=== PATIENT | female | born 1970 | race Caucasian/White ===

== ENCOUNTER → 2020-02-23 15:42 | Outpatient (BNVA) | payer MEDICAID, SELFPAY | PROVIDERS: PCP Nurse Practitioner Family; Referring Provider Nurse Practitioner Family; Visit Provider Dietitian, Registered | DX: Z76.89 Persons encountering health services in other specified circumstances (principal) ==

== ENCOUNTER → 2020-03-05 09:22 | Outpatient (BNVA) | payer MEDICAID, SELFPAY | PROVIDERS: PCP Nurse Practitioner Family; Visit Provider Surgery | DX: E66.9 Obesity, unspecified (principal); Z68.35 Body mass index [BMI] 35.0-35.9, adult; K91.2 Postsurgical malabsorption, not elsewhere classified; A04.8 Other specified bacterial intestinal infections; Z98.84 Bariatric surgery status | CPT/HCPCS: 99212 ==

== ENCOUNTER 2020-03-28 10:36 | Outpatient (REF) | payer MEDICAID, SELFPAY ==
[2020-03-28 12:12] LABS: Alanine Aminotransferase 11 U/L (0-31); Albumin Level 4.2 g/dL (3.5-5.0); Alkaline Phosphatase 74 U/L (39-117); Anion Gap 11 (12-20); Aspartate Amino Transferase 22 U/L (5-31); Bilirubin Total 0.3 mg/dL (0.0-1.0); Blood Urea Nitrogen 8 mg/dL (9-16); C Reactive Protein 0.78 mg/dL (< or = 0.50); Calcium 9.3 mg/dL (8.4-10.2); Carbon Dioxide 32 mmol/L (22-29); Chloride 103 mmol/L (96-108); Cholesterol 200 mg/dL; Estimated Glomerular Filt Rate > 60; Glucose Fasting 79 mg/dL (60-99); HDL Cholesterol 76 mg/dL; Iron 97 mcg/dL (30-160); LDL Cholesterol Calculated 99 mg/dl; Percent Iron Saturation 32 % (15-50); Potassium 4.7 mmol/l (3.3-5.1); Sodium 141 mmol/L (135-145); Total Iron Binding Capacity 303 mcg/dL (228-428); Total Protein 7.8 g/dL (6.5-8.0); Triglycerides 126 mg/dL; Unsaturated Iron Binding 206 ug/dL
[2020-03-28 12:34] LABS: Thyroid Stimulating Hormone 0.62 uIU/mL (0.32-4.0); Vitamin D 25-OH Total 25.9 ng/mL (>30)
[2020-03-28 12:37] LABS: Vitamin B12 331 pg/mL (200-900)
[2020-03-31 12:51] LABS: Zinc 72 mcg/dL (60-130)
[2020-04-04 10:57] LABS: Vitamin B1 6 nmol/L (8-30)
[2020-04-04 13:23] LABS: Vitamin A 37 mcg/dL (38-98)
== END 2020-03-28 10:37 | disposition home or self-care (01) ==
LOC: HO.LAB 10:36
PROVIDERS: PCP Nurse Practitioner Family; Visit Provider Surgery
DX: Z01.818 Encounter for other preprocedural examination (principal); K91.2 Postsurgical malabsorption, not elsewhere classified; Z90.3 Acquired absence of stomach [part of]
CPT/HCPCS: 80053; 80061; 82306; 82607; 83540; 84425; 84443; 84590; 84630; 86140

== ENCOUNTER 2020-07-17 10:06 | Outpatient (REF) | payer MEDICAID, SELFPAY ==
[2020-07-17 12:23] LABS: MANUAL DIFF FLAG NO
[2020-07-17 12:32] LABS: Basophils Percent Auto 0.7 % (0-2); Eosinophils Absolute Auto 0.1 X10*3/uL (0.0-0.4); Eosinophils Percent Auto 3.5 % (0-4); Hematocrit 43.2 % (37-47); Hemoglobin 13.8 g/dl (12.0-16.0); Imm Gran Abs Auto 0.01 X10*3/uL (0.00-0.03); Imm Gran Pct Auto 0.3 % (0.0-0.4); Lymphocytes Absolute Auto 1.5 X10*3/uL (1.2-4.9); Lymphocytes Percent Auto 51.7 % (20-40); Mean Corpuscular HGB Conc 31.9 g/dl (31.0-35.0); Mean Corpuscular Hemoglobin 27.7 pg (27.0-33.0); Mean Corpuscular Volume 86.7 fL (80-98); Monocytes Absolute Auto 0.2 X10*3/uL (0.1-1.2); Neutrophils Percent Auto 35.8 % (45-73); Platelet Count 273 X10*3/uL (160-400); Red Blood Count 4.98 X10*6/uL (4.20-5.50); Red Cell Distribution Width 13.8 % (11.0-16.0); White Blood Count 2.9 X10*3/uL (4.8-10.8)
[2020-07-17 12:59] LABS: Estimated Average Glucose 100 mg/dL; Hemoglobin A1c % 5.1 %
[2020-07-17 13:00] LABS: Alanine Aminotransferase 8 U/L (0-31); Albumin Level 4.3 g/dL (3.5-5.0); Alkaline Phosphatase 73 U/L (39-117); Anion Gap 9 (12-20); Aspartate Amino Transferase 15 U/L (5-31); Bilirubin Total 0.6 mg/dL (0.0-1.0); Blood Urea Nitrogen 12 mg/dL (9-16); C Reactive Protein 0.82 mg/dL (< or = 0.50); Calcium 9.1 mg/dL (8.4-10.2); Carbon Dioxide 33 mmol/L (22-29); Chloride 103 mmol/L (96-108); Cholesterol 199 mg/dL; Estimated Glomerular Filt Rate > 60; Glucose Fasting 75 mg/dL (60-99); HDL Cholesterol 87 mg/dL; Iron 97 mcg/dL (30-160); LDL Cholesterol Calculated 98 mg/dl; Percent Iron Saturation 30 % (15-50); Potassium 4.3 mmol/L (3.3-5.1); Sodium 141 mmol/L (135-145); Total Iron Binding Capacity 321 mcg/dL (228-428); Total Protein 7.4 g/dL (6.5-8.0); Triglycerides 73 mg/dL; Unsaturated Iron Binding 224 ug/dL
[2020-07-17 13:19] LABS: Thyroid Stimulating Hormone 1.08 uIU/mL (0.32-4.0); Vitamin D 25-OH Total 25.1 ng/mL (>30)
[2020-07-17 13:20] LABS: Vitamin B12 314 pg/mL (200-900)
[2020-07-20 06:47] LABS: Zinc 87 mcg/dL (60-130)
[2020-07-21 06:42] LABS: Vitamin B1 6 nmol/L (8-30)
[2020-07-21 17:46] LABS: Vitamin A 35 mcg/dL (38-98)
== END 2020-07-17 10:07 | disposition home or self-care (01) ==
LOC: HO.LAB 10:06
PROVIDERS: Visit Provider Surgery
DX: Z01.818 Encounter for other preprocedural examination (principal); K91.2 Postsurgical malabsorption, not elsewhere classified; E66.9 Obesity, unspecified; Z98.84 Bariatric surgery status; Z68.35 Body mass index [BMI] 35.0-35.9, adult; Z90.3 Acquired absence of stomach [part of]
CPT/HCPCS: 36415; 80053; 80061; 82306; 82607; 83036; 83540; 84425; 84443; 84590; 84630; 85025; 86140; 99212

== ENCOUNTER → 2020-09-11 10:16 | Outpatient (BNVA) | payer MEDICAID, SELFPAY | PROVIDERS: Visit Provider Surgery | DX: E66.9 Obesity, unspecified (principal); Z68.32 Body mass index [BMI] 32.0-32.9, adult | CPT/HCPCS: 99212 ==

== ENCOUNTER 2020-09-19 09:11 | Outpatient (REF) | payer MEDICAID, SELFPAY ==
--- NOTE | ~2020-09-19 | MM_ITS ---
EXAMINATION: MM DIAGNOSTIC DIGITAL BREAST TOMOSYNTHESIS, BILATERAL CLINICAL INFORMATION: Due for yearly. Also follow-up probable benign calcifications mid outer and mid upper outer right breast. Prior history reduction mammoplasty 2007. History benign left stereotactic biopsy 06/28/2018 (Benign breast tissue showing columnar cell changes, ductal hyperplasia and adenosis with associated microcalcifications; focal area showing fibroadenomatous changes. The lifetime risk of breast cancer based on the Tyrer-Cuzick Model is 7%. COMPARISON: Mammography: 01/25/2020, 12/21/2019 (BI-RADS 0), 06/28/2018, 06/10/2018, 09/19/2016. TECHNIQUE: Digital breast tomosynthesis is performed in both the craniocaudal and mediolateral oblique views along with computer-aided detection (CAD). Synthesized 2D images are generated from the tomosynthesis. Additional views are obtained: Left CC, magnification right CC, magnification right ML x2. FINDINGS: There are scattered areas of fibroglandular density (ACR BI-RADS breast composition Category b). There is mild stable scarring consistent with the prior reduction mammoplasty. Neither breast shows interval mass or architectural abnormality or developing density. There are some scattered benign calcifications again seen left breast and a biopsy clip marker again noted left mid upper outer quadrant. Right breast has benign-appearing grouped calcifications for follow-up mid 9:30 o'clock position and mid upper outer quadrant. Both groups appear coarser. There are new grouped calcifications in the anterior upper outer right breast, a few coarse and a few fine. There is likely some layering on a few of the fine calcifications suggested ML view. This may be same benign process of the calcifications being followed mid upper outer breast. Right breast will be reassessed again in 6 months to include magnification views. Results are discussed with the patient at time of visit. MM/MM tomosynthesis diagnostic BI IMPRESSION: 1. Right: Two groups calcifications for follow up upper outer quadrant are benign appearing. There are new calcifications in the periareolar right breast. Will follow the 3 areas in 6 months. 2. Left: No mammographic evidence of malignancy. ASSESSMENT: BI-RADS 3: Probably Benign RECOMMENDATION: Diagnostic right mammography in 6 months. This patient's information was entered into a reminder system with a target due date for their next mammogram.
== END 2020-09-19 09:12 | disposition home or self-care (01) ==
LOC: HO.MAMMO 09:11
PROVIDERS: Visit Provider Nurse Practitioner Family
DX: R92.1 Mammographic calcification found on diagnostic imaging of breast (principal)
CPT/HCPCS: 77062; 77066

== ENCOUNTER 2020-11-08 12:35 | Outpatient (REF) | payer MEDICAID, SELFPAY ==
[2020-11-08 13:36] LABS: Albumin Level 4.2 g/dL (3.5-5.0)
[2020-11-12 06:21] LABS: Vitamin B1 8 nmol/L (8-30)
[2020-11-12 19:41] LABS: Vitamin A 39 mcg/dL (38-98)
== END 2020-11-08 12:36 | disposition home or self-care (01) ==
LOC: HO.LAB 12:35
PROVIDERS: PCP Nurse Practitioner Family; Visit Provider Surgery
DX: Z01.818 Encounter for other preprocedural examination (principal); E66.9 Obesity, unspecified; Z68.35 Body mass index [BMI] 35.0-35.9, adult; E50.9 Vitamin A deficiency, unspecified; E51.9 Thiamine deficiency, unspecified; K91.2 Postsurgical malabsorption, not elsewhere classified; Z90.3 Acquired absence of stomach [part of]
CPT/HCPCS: 36415; 82040; 84425; 84590; 99212

== ENCOUNTER → 2021-02-05 10:41 | Outpatient (BNVA) | payer MEDICAID, SELFPAY | PROVIDERS: PCP Nurse Practitioner Family; Referring Provider Nurse Practitioner Family; Visit Provider Surgery | DX: E66.9 Obesity, unspecified (principal); Z68.35 Body mass index [BMI] 35.0-35.9, adult | CPT/HCPCS: 99212 ==

== ENCOUNTER → 2021-03-05 15:52 | Outpatient (BNVA) | payer MEDICAID, SELFPAY | PROVIDERS: PCP Nurse Practitioner Family; Referring Provider Nurse Practitioner Family; Visit Provider Physician Assistant Surgical ==

== ENCOUNTER 2021-03-22 01:42 | Emergency (ER) | payer MEDICAID, SELFPAY ==
[2021-03-22] MEDS: diphenhydrAMINE HCL 25 MG TABLET 50 MG PO (02:17)
[2021-03-22] MEDS: LORazepam 1 MG TABLET 2 MG PO (02:18)
[2021-03-22] MEDS: HaloperidoL 5 MG TABLET PO (02:18)
[2021-03-22 02:19] VITALS: RESP 22; TEMP 37.1; BMI 33.0
[2021-03-22 02:53] LABS: COVID-19 Test Negative (Negative)
--- NOTE | 2021-03-22 03:25 | ED.PSYCH ---
HPI - Psych General Chief Complaint: Psychiatric Symptoms Stated Complaint: psych/crisis Time Seen by Provider: 03/22/21 01:51 Source: EMS Mode of arrival: EMS Limitations: no limitations History of Present Illness HPI Narrative: Patient found out that her son of an overdose. She was found running around the street screaming not making sense. When EMS came in patient was screaming and trying to throw herself off of the stretcher. complaint: anxiety Onset (ago): hour(s) Duration: constant Context: other (found out that her son of overdose) Related Data Home Medications Medication Instructions Recorded Confirmed No Known Home Meds 03/05/21 03/05/21 Allergies Allergy/AdvReac Type Severity Reaction Status Date / Time Iodinated Contrast Media AdvReac Intermediate VOMITING Verified 03/05/21 16:05 [IV CONTRAST] Review of Systems Constitutional: Constitutional: Reports no additional constitutional complaints Eyes: Eyes: Reports no additional eye complaints ENT: Denies dizziness Cardiovascular: Cardiovascular: Reports no additional cardiovascular complaints Respiratory: Respiratory: Reports as per HPI Gastrointestinal: Gastrointestinal: Reports no additional gastrointestinal complaints Genitourinary: Genitourinary: Reports no additional female genitourinary complaints Musculoskeletal: Musculoskeletal: Reports no additional musculoskeletal complaints Integumentary/Breasts: Skin/Breast: Denies rash Neurologic: Reports system reviewed and no additional complaints, except as documented, Denies dizziness and Denies Sensory deficit (Neuro) Psychiatric: Psychiatric: Denies anxiety PMFSH Past Medical History Medical History Asthma Insomnia Obesity (BMI 30-39.9) Sleep apnea with use of continuous positive airway pressure (CPAP) Urinary incontinence Surgical History H/O oophorectomy Hx laparoscopic cholecystectomy Hx of colonoscopy Hx of tubal ligation S/P hernia repair S/P laparoscopic sleeve gastrectomy S/P BARBRA (total abdominal hysterectomy) Status post breast reduction Family History Family History Father DM (diabetes mellitus) HTN (hypertension) Mother Dementia Uterine cancer Brother No problems noted. Brother No problems noted. Brother No problems noted. Sister No problems noted. Sister No problems noted. Sister No problems noted. Sister No problems noted. Sister No problems noted. Sister No problems noted. Son No problems noted. Son No problems noted. Son No problems noted. Daughter No problems noted. Social History Social History Alcohol intake: current Patient Tobacco Use Status: Never used Tobacco Advance Directives: No Patient : No Physical Exam Vital Signs: Vital Signs: Last Vital Signs Temp 98.7 F 03/22/21 02:19 Resp 22 H 03/22/21 02:19 Body Mass Index 33.0 Const: Other: patient lethargic from being medicated Nutritional Appearance: obese Orientation/consciousness: oriented to person and patient oriented x3 Limitations: no limitations HENMT: Head: Yes normal to inspection Ears: external ears normal General nose exam: Normal external nose present Mouth: Normal oral and palatal mucosa present and oropharynx normal Throat: Yes posterior oropharynx normal Eyes: General: appearance normal, both eyes and all related structures Neck: Other: supple Neck: Yes normal visual inspection Chest: Chest palpation & inspection: normal inspection of the chest Resp: Auscultation: clear to auscultation bilaterally Cardio: Jugular venous distension: no JVD Rate: regular rate Rhythm: regular rhythm Heart sounds: S1 normal heart sound present and S2 normal heart sound present GI: Inspection: Yes normal to inspection Palpation (GI): Soft to palpation, nontender and No hepatosplenomegaly present Auscultation: normal bowel sounds : General: Yes no CVA tenderness Back/Spine/Pelvis: Back: no CVA tenderness Skin: General skin exam: no rashes or lesions noted Neuro: General: oriented to person and patient oriented x3 Cranial nerves: Yes CN's II-XII intact bilaterally Motor exam (neuro): 5/5 motor strength present throughout Sensory Exam: No Sensory deficit (Neuro) Extrem: General: Yes normal to inspection Psych: Other: lethargic Course Reevaluation(s) Reevaluation #1: patient now awake and calm, not suicidal or homicidal will dc home Time: 07:51 MDM - Psych Lab Data Labs: Lab Results 03/22/21 Range/Units 02:33 COVID-19 ([facility]) Negative (Negative) COVID-19 Clin Com See Note Discharge Plan Discharge Clinical Impression: Agitation, Anxiety, Grief at loss of child Patient Disposition: Home, Self-Care Instructions: Anxiety (ED), Grief and Loss (ED) Referrals: Physician,Unknown J [Primary Care Provider] - 1 week
--- NOTE | 2021-03-22 06:05 | PC.NURSE ---
Patient is currently sleeping, patient is emotionally dysregulated due tragic demised of his son yesterday, patient received Ativan 2 mg PO, Benadryl 50 mg PO, and Haldol mg PO, with delayed but positive effect. Patient wanted to leave the hospital since she lives by herself was advised to stay tonight at least which she agreed, patient was not changed over due inconsolable behavior, care team will check with patient to see for crises evaluation need, will continue to monitor.
--- NOTE | 2021-03-22 07:12 | PC.NURSE ---
patient appeared to remain sleeping at begin of shift respirations are even and unlabored, patient appears in no distress.
== END 2021-03-22 09:13 | disposition home or self-care (01) ==
PROVIDERS: Emergency Provider Emergency Medicine
DX: F41.9 Anxiety disorder, unspecified (principal); R45.1 Restlessness and agitation; Z72.89 Other problems related to lifestyle; Z63.4 Disappearance and death of family member; Z20.822 Contact with and (suspected) exposure to COVID-19
CPT/HCPCS: 36415; 87635; 96372; 99283; 99285; Q0163

== ENCOUNTER 2021-04-03 10:31 | Emergency (ER) | payer MEDICAID, SELFPAY ==
[2021-04-03 10:34] VITALS: BP 116/66; PULSE 78; RESP 18; TEMP 36.8; O2SAT 99; BMI 33.6
--- NOTE | 2021-04-03 10:37 | ECG_ITS ---
Test Reason : CHEST PAIN Blood Pressure : / mmHG Vent. Rate : 066 BPM Atrial Rate : 066 BPM P-R Int : 190 ms QRS Dur : 096 ms QT Int : 432 ms P-R-T Axes : 036 011 059 degrees QTc Int : 452 ms Normal sinus rhythm Normal ECG When compared with ECG of 12-JUL-2019 13:43, No significant change was found Referred By: Generic ED Physician Electronically Signed By:CARLINE DUBOIS
[2021-04-03 11:35] LABS: MANUAL DIFF FLAG NO
--- NOTE | 2021-04-03 11:36 | ED.CHESTPAIN ---
HPI - Chest Pain General Chief Complaint: Chest Pain Stated Complaint: chest pain Time Seen by Provider: 04/03/21 11:36 Source: patient Mode of arrival: ambulatory Limitations: no limitations History of Present Illness HPI narrative: Patient with diffuse numbness, now with neck and back pain with chest pain. Patients son on March 22 and she has been under a lot of stress. MD complaint: chest pain Onset (ago): day(s) Timing of current episode: constant Onset: during rest Pain location: substernal Quality: tightness Associated symptoms: other (numbness and anxiety) Related Data Previous Rx's Medication Instructions Recorded hydroxyzine HCl 25 mg tablet 25 mg PO TID PRN #7 tab 04/03/21 Allergies Allergy/AdvReac Type Severity Reaction Status Date / Time Iodinated Contrast Media AdvReac Intermediate VOMITING Verified 03/05/21 16:05 [IV CONTRAST] Review of Systems Constitutional: Constitutional: Reports no additional constitutional complaints Eyes: Eyes: Reports no additional eye complaints ENT: Denies dizziness Cardiovascular: Cardiovascular: Reports no additional cardiovascular complaints Respiratory: Respiratory: Reports as per HPI Gastrointestinal: Gastrointestinal: Reports no additional gastrointestinal complaints Genitourinary: Genitourinary: Reports no additional female genitourinary complaints Musculoskeletal: Musculoskeletal: Reports no additional musculoskeletal complaints Integumentary/Breasts: Skin/Breast: Denies rash Neurologic: Reports system reviewed and no additional complaints, except as documented, Denies dizziness and Denies Sensory deficit (Neuro) Psychiatric: Psychiatric: Denies anxiety PMFSH Past Medical History Medical History Asthma Insomnia Obesity (BMI 30-39.9) Sleep apnea with use of continuous positive airway pressure (CPAP) Urinary incontinence Surgical History H/O oophorectomy Hx laparoscopic cholecystectomy Hx of colonoscopy Hx of tubal ligation S/P hernia repair S/P laparoscopic sleeve gastrectomy S/P BARBRA (total abdominal hysterectomy) Status post breast reduction Family History Family History Father DM (diabetes mellitus) HTN (hypertension) Mother Dementia Uterine cancer Brother No problems noted. Brother No problems noted. Brother No problems noted. Sister No problems noted. Sister No problems noted. Sister No problems noted. Sister No problems noted. Sister No problems noted. Sister No problems noted. Son No problems noted. Son No problems noted. Son No problems noted. Daughter No problems noted. Social History Social History Alcohol intake: current Patient Tobacco Use Status: Never used Tobacco Advance Directives: No Advance Directives Information Provided: No Patient : No Physical Exam Vital Signs: Vital Signs: Last Vital Signs Temp 98.3 F 04/03/21 10:34 Pulse 78 04/03/21 10:34 Resp 18 04/03/21 10:34 BP 116/66 04/03/21 10:34 Pulse Ox 99 04/03/21 10:34 BMI result Body Mass Index 33.6 Const: General: healthy appearing Nutritional Appearance: average body habitus Orientation/consciousness: oriented to person and patient oriented x3 Limitations: no limitations HENMT: Head: Yes normal to inspection Ears: external ears normal General nose exam: Normal external nose present Mouth: Normal oral and palatal mucosa present and oropharynx normal Throat: Yes posterior oropharynx normal Eyes: General: appearance normal, both eyes and all related structures Neck: Other: supple Neck: Yes normal visual inspection Chest: Chest palpation & inspection: normal inspection of the chest Resp: Auscultation: clear to auscultation bilaterally Cardio: Jugular venous distension: no JVD Rate: regular rate Rhythm: regular rhythm Heart sounds: S1 normal heart sound present and S2 normal heart sound present GI: Inspection: Yes normal to inspection Palpation (GI): Soft to palpation, nontender and No hepatosplenomegaly present Auscultation: normal bowel sounds : General: Yes no CVA tenderness Back/Spine/Pelvis: Back: no CVA tenderness Skin: General skin exam: no rashes or lesions noted Neuro: General: oriented to person and patient oriented x3 Cranial nerves: Yes CN's II-XII intact bilaterally Motor exam (neuro): 5/5 motor strength present throughout Sensory Exam: No Sensory deficit (Neuro) Extrem: General: Yes normal to inspection Psych: Appearance: grossly normal Course Reevaluation(s) Reevaluation #1: patient with likely anxiety and somatic symptoms secondary to anxiety secondary to of her son will give hydroxyzine Time: 13:10 MDM - Chest Pain Lab Data Result diagrams: 04/03/21 11:26 12/01/21 11:26 Labs: Lab Results 04/03/21 04/03/21 04/03/21 Range/Units 11:26 11:26 11:26 WBC 4.0 L (4.8-10.8) X10*3/uL RBC 4.68 (4.20-5.50) X10*6/uL Hgb 12.9 (12.0-16.0) g/dl Hct 40.7 (37.0-47.0) % MCV 87.0 (80.0-98.0) fL MCH 27.6 (27.0-33.0) pg MCHC 31.7 (31.0-35.0) g/dl RDW 13.5 (11.0-16.0) % Plt Count 237 (160-400) X10*3/uL MPV 9.0 L (9.4-12.3) fL Immature Gran % (Auto) 0.2 (0.0-0.4) % Neut % (Auto) 54.1 (45-73) % Lymph % (Auto) 33.6 (20-40) % Wolfe % (Auto) 9.2 (2-11) % Eos % (Auto) 2.2 (0-4) % Baso % (Auto) 0.7 (0-2) % Lymph # (Auto) 1.4 (1.2-4.9) X10*3/uL Wolfe # (Auto) 0.4 (0.1-1.2) X10*3/uL Eos # (Auto) 0.1 (0.0-0.4) X10*3/uL Baso # (Auto) 0.0 (0.0-0.2) X10*3/uL Abs Immat Gran (auto) 0.01 (0.00-0.03) X10*3/uL Absolute Neuts (auto) 2.2 (2.0-8.3) x10*3/uL Absolute Nucleated RBC 0.000 (0.0-0.012) X10*3/uL Nucleated RBC % (auto) 0.0 (0.0-0.2) /100WBC Sodium 142 (135-145) mmol/L Potassium 4.0 (3.3-5.1) mmol/L Chloride 107 (96-108) mmol/L Carbon Dioxide 29 (22-29) mmol/L Anion Gap 10 L (12-20) BUN 8 L (9-16) mg/dL Creatinine 0.72 (0.5-1.4) mg/dL Estim Creat Clear Calc 98.3 Estimated GFR > 60 Random Glucose 79 (60-115) mg/dL Calcium 9.0 (8.4-10.2) mg/dL Troponin I High Sens < 3.5 (<3.5-17.0) ng/L ECG Data ECG #1: Attestation: I personally reviewed and interpreted this ECG as follows: Interpretation: normal sinus rate [address] or twave changes Discharge Plan Discharge Clinical Impression: Atypical chest pain, Anxiety Patient Disposition: Home, Self-Care Instructions: Noncardiac Chest Pain (ED), Anxiety (ED) Prescriptions: New hydroxyzine HCl 25 mg tablet 25 mg PO TID PRN (Reason: anxiety) Qty: 7 RF: 0 Referrals: [facility] [Primary Care Provider] - 1 week
[2021-04-03 11:38] LABS: Basophils Percent Auto 0.7 % (0-2); Eosinophils Absolute Auto 0.1 X10*3/uL (0.0-0.4); Eosinophils Percent Auto 2.2 % (0-4); Hematocrit 40.7 % (37.0-47.0); Hemoglobin 12.9 g/dl (12.0-16.0); Imm Gran Abs Auto 0.01 X10*3/uL (0.00-0.03); Imm Gran Pct Auto 0.2 % (0.0-0.4); Lymphocytes Absolute Auto 1.4 X10*3/uL (1.2-4.9); Lymphocytes Percent Auto 33.6 % (20-40); Mean Corpuscular HGB Conc 31.7 g/dl (31.0-35.0); Mean Corpuscular Hemoglobin 27.6 pg (27.0-33.0); Monocytes Absolute Auto 0.4 X10*3/uL (0.1-1.2); Monocytes Percent Auto 9.2 % (2-11); Neutrophils Absolute Auto 2.2 x10*3/uL (2.0-8.3); Neutrophils Percent Auto 54.1 % (45-73); Platelet Count 237 X10*3/uL (160-400); Red Blood Count 4.68 X10*6/uL (4.20-5.50); Red Cell Distribution Width 13.5 % (11.0-16.0)
[2021-04-03 11:49] LABS: Anion Gap 10 (12-20); Blood Urea Nitrogen 8 mg/dL (9-16); Carbon Dioxide 29 mmol/L (22-29); Chloride 107 mmol/L (96-108); Creatinine Clr Calc Pharmacy 98.3; Estimated Glomerular Filt Rate > 60; Glucose Random 79 mg/dL (60-115); Sodium 142 mmol/L (135-145)
[2021-04-03 11:56] LABS: Troponin-I High Sensitivity < 3.5 ng/L (<3.5-17.0)
--- NOTE | 2021-04-03 14:11 | PC.NURSE ---
nad, no cp, declined med
== END 2021-04-03 14:10 | disposition home or self-care (01) ==
PROVIDERS: Emergency Provider Emergency Medicine
DX: R07.89 Other chest pain (principal); F41.1 Generalized anxiety disorder; F43.0 Acute stress reaction; Z79.899 Other long term (current) drug therapy
CPT/HCPCS: 36415; 80048; 84484; 85025; 93005; 99283

== ENCOUNTER 2021-07-03 13:37 | Outpatient (REF) | payer MEDICAID, SELFPAY ==
--- NOTE | ~2021-07-03 | MM_ITS ---
EXAMINATION: MM DIAGNOSTIC DIGITAL BREAST TOMOSYNTHESIS, BILATERAL CLINICAL INFORMATION: Follow-up probable benign calcifications anterior and upper outer right breast. Prior history reduction mammoplasty, 2008. Benign left stereotactic biopsy 06/28/2018 (Benign breast tissue showing columnar cell changes, ductal hyperplasia and adenosis with associated microcalcifications; focal area showing fibroadenomatous changes. The lifetime risk of breast cancer based on the Tyrer-Cuzick Model is 7%. COMPARISON: Mammography: 09/19/2020 (BI-RADS 3-new calcifications periareolar), 01/25/2020, 12/21/2019 (BI-RADS 0), 06/22/2018, 06/10/2018 TECHNIQUE: Digital breast tomosynthesis is performed in both the craniocaudal and mediolateral oblique views along with computer-aided detection (CAD). Synthesized 2D images are generated from the tomosynthesis. Additional magnification right CC and magnification right ML views are obtained. FINDINGS: There are scattered areas of fibroglandular density (ACR BI-RADS breast composition Category b). Parenchymal pattern is similar to prior exams and there is no interval mass or architectural abnormality, or developing density. The axilla and skin contours are unremarkable. There are scattered bilateral incidental calcifications. Right breast calcifications for follow-up, 2 older groups mid 9:00 and mid upper outer quadrant are stable. The more recent grouped calcifications periareolar upper outer right breast are also stable from prior study. Calcifications will be reassessed again at next bilateral annual mammography in 12 months. Results are provided to the patient at time of visit by the technologist. MM/MM tomosynthesis diagnostic BI IMPRESSION: No significant changes from prior exams. Probable benign calcifications right breast, 3 groups, stable. ASSESSMENT: BI-RADS 3: Probably Benign RECOMMENDATION: Diagnostic mammography at time of next annual exam, due in 12 months. This patient's information was entered into a reminder system with a target due date for their next mammogram.
== END 2021-07-03 13:38 | disposition home or self-care (01) ==
LOC: HO.MAMMO 13:37
PROVIDERS: Visit Provider Nurse Practitioner Family
DX: R92.1 Mammographic calcification found on diagnostic imaging of breast (principal)
CPT/HCPCS: 77062; 77066

== ENCOUNTER 2022-07-05 15:42 | Inpatient (IN) | payer MEDICAID, SELFPAY ==
--- NOTE | ~2022-07-05 | CT_ITS ---
EXAMINATION: CT ABDOMEN AND PELVIS WITHOUT CONTRAST CLINICAL INFORMATION: Right lower quadrant pain, nausea and vomiting and fever. COMPARISON: CT abdomen/pelvis 01/05/2019. TECHNIQUE: Multidetector volumetric imaging was performed from the superior aspect of the liver through the pubic symphysis. Sagittal and coronal reformatted images were obtained on the technologist's workstation. This CT examination was performed using dose optimization techniques as appropriate, variously including the following: *Automated exposure control *Adjustment of mA and/or kV according to patient size (this includes techniques or standardized protocols for targeted exams where dose is matched to indication/reason for exam; i.e. extremities or head) *Use of iterative reconstruction technique DLP: 647 mGy-cm FINDINGS: LUNG BASES: No focal consolidation or pleural effusion. LIVER, GALLBLADDER, AND BILIARY TREE: The liver is normal in size, shape and attenuation without discrete focal abnormality in this limited noncontrast examination. Cholecystectomy with stable nonspecific intra and extrahepatic biliary duct dilatation compared to 2019. There are surgical clips in the cholecystectomy bed and adjacent to the posterior surface of the right hepatic lobe, likely dropped clips. PANCREAS: Limited noncontrast examination, within normal limits. SPLEEN: Unremarkable. ADRENAL GLANDS: No adrenal nodule. KIDNEYS AND URETERS: Limited noncontrast examination. No nephrolithiasis or hydronephrosis. No perinephric fat stranding. BLADDER: Underdistended limiting assessment of wall thickening. No perivesical fat stranding or intraluminal calculi. GASTROINTESTINAL TRACT: Postsurgical changes from sleeve gastrectomy. Multiple distended fluid filled loops of small bowel with also fluid in the colon and rectum, and associated mesenteric lymphadenopathy and mesenteric fat stranding. Nonspecific clumped loops of distended small bowel in the left upper abdomen (2:23). ABDOMINAL WALL: Again noted abdominal wall mesh with a couple of adjacent surgical clips anterior to the peritoneal cavity. Redemonstration of small fat-containing anterior abdominal wall hernias just superior to the mesh. LYMPH NODES: As above, there is mesenteric lymphadenopathy, increased compared to 2019, more noticeable in the left upper abdomen measuring up to 9 mm in AP diameter. VASCULAR: Limited noncontrast examination. The abdominal aorta is of normal diameter. PELVIC VISCERA: Hysterectomy. No pelvic mass. OSSEOUS STRUCTURES: Nonaggressive appearing sclerotic osseous foci in the pelvis, unchanged since 2019 likely bone islands. Degenerative endplate sclerosis at L4-L5. No acute or aggressive appearing osseous abnormalities. CT/CT abdomen pelvis wo IV con IMPRESSION: 1. Multiple distended fluid-filled loops of small bowel with also fluid in the colon/rectum, and associated mesenteric lymphadenopathy and mild mesenteric fat stranding, suggesting gastroenteritis and diarrhea. 2. Nonspecific clumped loops of mildly distended small bowel in the left upper abdomen that are likely reactive in the setting of gastroenteritis related with focal ileus, or much less likely related with a developing partial bowel obstruction within an internal hernia. Attention on follow-up recommended. 3. Redemonstration of small fat-containing anterior abdominal wall hernias just superior to the abdominal wall mesh. 4. Mesenteric lymphadenopathy, likely reactive. Attention on follow-up recommended.
--- NOTE | 2022-07-05 16:00 | ED_ITS ---
HPI - Nausea/Vomiting/Diarrhea General Chief complaint: Abdominal Pain <Taryn Deutsch CNP - Last Filed: 07/05/22 16:03> Stated complaint: diarrhea vomiting X3 days <Taryn Deutsch CNP - Last Filed: 07/05/22 16:03> Time Seen by Provider: 07/05/22 17:10 <Taryn Deutsch CNP - Last Filed: 07/05/22 16:03> Source: patient <Renee Trevizo NP - Last Filed: 07/05/22 21:53> Mode of arrival: ambulatory <Renee Trevizo NP - Last Filed: 07/05/22 21:53> Limitations: no limitations <Renee Trevizo NP - Last Filed: 07/05/22 21:53> History of Present Illness HPI Narrative: 51-year-old female presents with right-sided abdominal pain and 3 days of nausea vomiting diarrhea and fevers. <Renee Trevizo NP - Last Filed: 07/05/22 21:53> MD elicited complaint: nausea, vomiting, diarrhea, abdominal pain and other (Fever) <Renee Trevizo NP - Last Filed: 07/05/22 21:53> Pertinent past history: abdominal surgery <Renee Trevizo NP - Last Filed: 07/05/22 21:53> Onset (ago): day(s) (3) <Renee Trevizo NP - Last Filed: 07/05/22 21:53> Description of vomiting: watery <Renee Trevizo NP - Last Filed: 07/05/22 21:53> Description of diarrhea: watery <Renee Trevizo NP - Last Filed: 07/05/22 21:53> Associated nausea: Yes <Renee Trevizo NP - Last Filed: 07/05/22 21:53> Associated abdominal pain: Yes <Renee Trevizo NP - Last Filed: 07/05/22 21:53> Location of pain: diffuse <Renee Trevizo NP - Last Filed: 07/05/22 21:53> Pain consistency: constant <Renee Trevizo NP - Last Filed: 07/05/22 21:53> Severity: moderate <Renee Trevizo NP - Last Filed: 07/05/22 21:53> Quality: aching <Renee Trevizo NP - Last Filed: 07/05/22 21:53> Exacerbating factors: eating, vomiting and movement <Renee Trevizo NP - Last Filed: 07/05/22 21:53> Relieving factors: rest <Renee Trevizo NP - Last Filed: 07/05/22 21:53> Context: history of abdominal surgery <Renee Trevizo NP - Last Filed: 07/05/22 21:53> Associated symptoms: fever/chills and nausea/vomiting <Renee Trevizo NP - Last Filed: 08/24 21:53> Treatment prior to arrival: none <Renee Trevizo NP - Last Filed: 07/05/22 21:53> Related Data Home medications: Previous Rx's Medication Instructions Recorded hydroxyzine HCl 25 mg tablet 25 mg PO TID PRN anxiety #7 tabs 04/03/21 <Taryn Deutsch CNP - Last Filed: 07/05/22 16:03> Allergies/Adverse reactions: Allergies Allergy/AdvReac Type Severity Reaction Status Date / Time Iodinated Contrast Media AdvReac Intermediate VOMITING Verified 07/05/22 16:03 [IV CONTRAST] <Taryn Deutsch CNP - Last Filed: 07/05/22 16:03> Review of Systems Review of Systems: Constitutional: Phos Fever, No Chills Cardiovascular: No Chest Pain, No SOB Respiratory: No Cough, No Dyspnea Gastrointestinal: Positive Nausea, phos Vomiting, phos Diarrhea, positive abdominal Pain Genitourinary: No Dysuria, No Hematuria Musculoskeletal: No joint pain, No Myalgias, No Joint Swelling Skin: No Skin lacerations, No rash Neuro: No Weakness, No Dizziness, No Headache <Renee Trevizo NP - Last Filed: 07/05/22 21:53> Yes all other systems are reviewed and are negative <Renee Trevizo NP - Last Filed: 07/05/22 21:53> Gastrointestinal: Gastrointestinal: Reports nausea <Renee Trevizo NP - Last Filed: 07/05/22 21:53> PMFSH Past Medical History Attestation statement: The following information was validated with the patient. <Renee Trevizo NP - Last Filed: 07/05/22 21:53> Source: old records reviewed <Renee Trevizo NP - Last Filed: 07/05/22 21:53> Medical History: Medical History Asthma Insomnia Obesity (BMI 30-39.9) Sleep apnea with use of continuous positive airway pressure (CPAP) Urinary incontinence <Taryn Deutsch CNP - Last Filed: 07/05/22 16:03> Surgical History: Surgical History H/O oophorectomy Hx laparoscopic cholecystectomy Hx of colonoscopy Hx of tubal ligation S/P hernia repair S/P laparoscopic sleeve gastrectomy S/P BARBRA (total abdominal hysterectomy) Status post breast reduction <Taryn Deutsch CNP - Last Filed: 07/05/22 16:03> Family History Family History: Family History Father DM (diabetes mellitus) HTN (hypertension) Mother Dementia Uterine cancer Brother No problems noted. Brother No problems noted. Brother No problems noted. Sister No problems noted. Sister No problems noted. Sister No problems noted. Sister No problems noted. Sister No problems noted. Sister No problems noted. Son No problems noted. Son No problems noted. Son No problems noted. Daughter No problems noted. <Taryn Deutsch CNP - Last Filed: 07/05/22 16:03> Social History Social History: Social History Alcohol intake: current Patient Tobacco Use Status: Never used Tobacco Advance Directives: No Advance Directives Information Provided: No <Taryn Deutsch CNP - Last Filed: 07/05/22 16:03> Physical Exam Vital Signs: Vital Signs: Last Vital Signs Temp 98.5 F 07/05/22 16:01 Pulse 75 07/05/22 16:01 Resp 16 07/05/22 16:01 BP 112/81 07/05/22 16:01 Pulse Ox 99 07/05/22 16:01 O2 Del Method 03/04/23 16:01 BMI result Body Mass Index 36.5 <Taryn Deutsch CNP - Last Filed: 07/05/22 16:03> Vital Signs: Last Vital Signs Temp 98.5 F 07/05/22 16:01 Pulse 75 07/05/22 16:01 Resp 16 07/05/22 16:01 BP 112/81 07/05/22 16:01 Pulse Ox 99 07/05/22 16:01 O2 Del Method 07/05/22 16:01 BMI result Body Mass Index 36.5 <Renee Trevizo NP - Last Filed: 07/05/22 21:53> Appearance: Alert. Oriented X3. No acute distress. Eyes: Pupils equal, round and reactive to light. ENT: Pharynx normal. Neck: Normal inspection. Neck supple. CVS: Normal heart rate and rhythm. Pulses normal. Respiratory: No respiratory distress. Breath sounds normal. Abdomen: Soft and nontender. Skin: Skin warm and dry. Normal skin color. Normal skin turgor. Extremities: No lower extremity edema. Neuro: No motor deficit. No sensory deficit. <Renee Trevizo NP - Last Filed: 07/05/22 21:53> Course Course Course Narrative: This is an RME: Additional HPI, ROS, PE not included below will be deferred to primary provider. Patient is a 51 year old female who presents to the emergency department for evaluation of right lower abdominal pain. Reports that she went to Urgent Care today. For the past 3 days been experiencing feve r, abdominal pain, vomiting, diarrhea, and headache. She had COVID-19 testing and a urinalysis which were reportedly negative. Reports history of a partial hysterectomy. Plan: Labs, urinalysis, COVID/influenza testing, CT abdomen and pelvis <Taryn Deutsch CNP - Last Filed: 07/05/22 16:03> This is an RME: Additional HPI, ROS, PE not included below will be deferred to primary provider. Patient is a 51 year old female who presents to the emergency department for evaluation of right lower abdominal pain. Reports that she went to Urgent Care today. For the past 3 days been experiencing fever, abdominal pain, vomiting, diarrhea, and headache. She had COVID-19 testing and a urinalysis which were reportedly negative. Reports history of a partial hysterectomy. Plan: Labs, urinalysis, COVID/influenza testing, CT abdomen and pelvis 51-year-old female presents for 3 days of nausea, vomiting, diarrhea, and abdominal pain with fevers on Thursday. She has had poor p.o. intake since, and has been barely able to drink water. She has about 3 years status post gastric bypass done by Dr. Hawkins, has not had any follow-up for over [address] Hawkins departed from this facility. CT scan abdomen pelvis indicates possible partial small-bowel obstruction, I did discuss this finding with Dr. Olguin. Dr. Olguin requested that I reach out to bariatric surgery. Patient's lab values indicate a white count of 3.0, H&H of 16.2/49.8, consistent with dehydration. 2 L of saline IV ordered. Patient was advised to stay NPO due to the partial obstruction. I did discuss this case in detail with Anthony BURKS. this patient would like to establish care with this as she has not had any follow-up with Bariatric surgery for quite some time. Plan of care is to admit for partial bowel obstruction. <Renee Trevizo, ENERGY SALES BROKER - Last Filed: 07/05/22 21:53> Consultations Consultation #1: Clau <Renee Trevizo, ENERGY SALES BROKER - Last Filed: 07/05/22 21:53> Time: 18:04 <Renee Trevizo, ENERGY SALES BROKER - Last Filed: 07/05/22 21:53> Consultation #2: Kristina <Renee Trevizo ENERGY SALES BROKER - Last Filed: 07/05/22 21:53> Time: 18:20 <Renee Quinterosonato, ENERGY SALES BROKER - Last Filed: 07/05/22 21:53> Medications Administered Discontinued Medications Generic Name Dose Route Start Last Admin Trade Name Freq PRN Reason Stop Dose Admin Sodium Chloride 1,000 mls @ 999 mls/hr 07/05/22 17:15 07/05/22 21:06 Ns IVCONT 07/05/22 18:15 Infused .Q1H1M LAINE Infusion Sodium Chloride 1,000 mls @ 999 mls/hr 07/05/22 17:15 07/05/22 21:07 Ns IVCONT 07/05/22 18:15 Infused .Q1H1M LAINE Infusion Ondansetron HCl 4 mg 07/05/22 17:11 07/05/22 17:37 Ondansetron Hcl 4 Mg/2 Ml Vial IVPUSH 07/05/22 17:12 4 mg ONCE ONE Administration <Taryn Deutsch CNP - Last Filed: 07/05/22 16:03> Medications Administered Discontinued Medications Generic Name Dose Route Start Last Admin Trade Name Marisol PRN Reason Stop Dose Admin Sodium Chloride 1,000 mls @ 999 mls/hr 07/05/22 17:15 07/05/22 21:06 Ns IVCONT 07/05/22 18:15 Infused .Q1H1M LAINE Infusion Sodium Chloride 1,000 mls @ 999 mls/hr 07/05/22 17:15 07/05/22 21:07 Ns IVCONT 07/05/22 18:15 Infused .Q1H1M LAINE Infusion Ondansetron HCl 4 mg 07/05/22 17:11 07/05/22 17:37 Ondansetron Hcl 4 Mg/2 Ml Vial IVPUSH 07/05/22 17:12 4 mg ONCE ONE Administration <Renee Trevizo NP - Last Filed: 07/05/22 21:53> Medical Decision Making Differential Diagnosis Differential Diagnoses: The differential diagnosis associated with the presentation includes <Renee Trevizo NP - Last Filed: 07/05/22 21:53> Colitis, gastroenteritis, Shigella, influenza, SBO <Renee Trevizo NP - Last Filed: 07/05/22 21:53> Admission/Observation Consideration of admission/observation: Escalation of care including admission/observation considered <Renee Trevizo NP - Last Filed: 07/05/22 21:53> Patient requires admission for the findings of partial bowel obstruction status post gastric bypass 3 years ago <Renee Trevizo NP - Last Filed: 07/05/22 21:53> Consult Healthcare Provider Management of the patient was discussed with: Wildlife Control Agent <Renee Trevizo NP - Last Filed: 07/05/22 21:53> Anthony Acevedo <Renee Trevizo NP - Last Filed: 07/05/22 21:53> Lab Data MDM Lab Attestation statement: I reviewed the patient's lab results. <Renee Trevizo NP - Last Filed: 07/05/22 21:53> Result Diagrams: 07/05/22 16:21 07/05/22 16:21 <Taryn Deutsch CNP - Last Filed: 07/05/22 16:03> Labs: Lab Results 07/05/22 07/05/22 07/05/22 Range/Units 16:19 16:21 16:21 WBC 3.0 L (4.8-10.8) X10*3/uL RBC 5.92 H D (4.20-5.50) X10*6/uL Hgb 16.2 H D (12.0-16.0) g/dl Hct 49.8 H D (37.0-47.0) % MCV 84.1 (80.0-98.0) fL MCH 27.4 (27.0-33.0) pg MCHC 32.5 (31.0-35.0) g/dl RDW 13.6 (11.0-16.0) % Plt Count 256 (160-400) X10*3/uL MPV 8.9 L (9.4-12.3) fL Immature Gran % (Auto) 0.3 (0.0-0.4) % Neut % (Auto) 49.2 (45-73) % Lymph % (Auto) 33.9 (20-40) % Harlan % (Auto) 12.9 H (2-11) % Eos % (Auto) 3.4 (0-4) % Baso % (Auto) 0.3 (0-2) % Lymph # (Auto) 1.0 L (1.2-4.9) X10*3/uL Harlan # (Auto) 0.4 (0.1-1.2) X10*3/uL Eos # (Auto) 0.1 (0.0-0.4) X10*3/uL Baso # (Auto) 0.0 (0.0-0.2) X10*3/uL Abs Immat Gran (auto) 0.01 (0.00-0.03) X10*3/uL Absolute Neuts (auto) 1.5 L (2.0-8.3) x10*3/uL Absolute Nucleated RBC 0.000 (0.0-0.012) X10*3/uL Nucleated RBC % (auto) 0.0 (0.0-0.2) /100WBC ESR 16 (0-20) MM/HR Sodium (135-145) mmol/L Potassium (3.3-5.1) mmol/L Chloride (96-108) mmol/L Carbon Dioxide (22-29) mmol/L Anion Gap (12-20) BUN (9-16) mg/dL Creatinine (0.5-1.4) mg/dL Estim Creat Clear Calc Estimated GFR Random Glucose (60-115) mg/dL Lactic Acid (0.5-2.0) mmol/L Calcium (8.4-10.2) mg/dL Total Bilirubin (0.0-1.0) mg/dL AST (5-31) U/L ALT (0-31) U/L Alkaline Phosphatase (39-117) U/L C-Reactive Protein (< or = 0.50) mg/dL Total Protein (6.5-8.0) g/dL Albumin (3.5-5.0) g/dL Lipase (8-78) U/L Urine Color Dark Yellow Urine Appearance Cloudy Urine pH 5.5 (5.0-9.0) Ur Specific [place] >= 1.030 H (1.005-1.025) Urine Protein 30 (1+) H (Neg-Trace) mg/dL Urine Glucose (UA) Negative (Negative) mg/dL Urine Ketones Trace (Negative) mg/dL Urine Blood Negative (Negative) Urine Nitrite Negative (Negative) Ur Leukocyte Esterase Negative (Negative) Urine RBC 0-2 (0-2) /HPF Urine WBC 0-5 (0-5) /HPF Ur Squamous Epith Cells 11-20 (0-2) /HPF Urine Bacteria Trace (None Seen) Hyaline Casts 6-10 (0-2) /LPF COVID-19 ([facility]E) (Negative) COVID-19 Clin Com Influenza Type A (PAYAM) (Negative) Influenza Type B (PAAYM) (Negative) Influenza A & B Note 07/05/22 07/05/22 07/05/22 Range/Units 16:21 16:21 16:22 WBC (4.8-10.8) X10*3/uL RBC (4.20-5.50) X10*6/uL Hgb (12.0-16.0) g/dl Hct (37.0-47.0) % MCV (80.0-98.0) fL MCH (27.0-33.0) pg MCHC (31.0-35.0) g/dl RDW (11.0-16.0) % Plt Count (160-400) X10*3/uL MPV (9.4-12.3) fL Immature Gran % (Auto) (0.0-0.4) % Neut % (Auto) (45-73) % Lymph % (Auto) (20-40) % Harlan % (Auto) (2-11) % Eos % (Auto) (0-4) % Baso % (Auto) (0-2) % Lymph # (Auto) (1.2-4.9) X10*3/uL [place] # (Auto) (0.1-1.2) X10*3/uL Eos # (Auto) (0.0-0.4) X10*3/uL Baso # (Auto) (0.0-0.2) X10*3/uL Abs Immat Gran (auto) (0.00-0.03) X10*3/uL Absolute Neuts (auto) (2.0-8.3) x10*3/uL Absolute Nucleated RBC (0.0-0.012) X10*3/uL Nucleated RBC % (auto) (0.0-0.2) /100WBC ESR (0-20) MM/HR Sodium 139 (135-145) mmol/L Potassium 4.0 (3.3-5.1) mmol/L Chloride 108 (96-108) mmol/L Carbon Dioxide 21 L (22-29) mmol/L Anion Gap 14 (12-20) BUN 13 (9-16) mg/dL Creatinine 0.82 (0.5-1.4) mg/dL Estim Creat Clear Calc 89.2 Estimated GFR > 60 Random Glucose 83 (60-115) mg/dL Lactic Acid 0.8 (0.5-2.0) mmol/L Calcium 9.3 (8.4-10.2) mg/dL Total Bilirubin 0.3 (0.0-1.0) mg/dL AST 22 (5-31) U/L ALT 16 (0-31) U/L Alkaline Phosphatase 95 (39-117) U/L C-Reactive Protein 2.68 H (< or = 0.50) mg/dL Total Protein 8.3 H (6.5-8.0) g/dL Albumin 4.6 (3.5-5.0) g/dL Lipase 13 (8-78) U/L Urine Color Urine Appearance Urine pH (5.0-9.0) Ur Specific [place] (1.005-1.025) Urine Protein (Neg-Trace) mg/dL Urine Glucose (UA) (Negative) mg/dL Urine Ketones (Negative) mg/dL Urine Blood (Negative) Urine Nitrite (Negative) Ur Leukocyte Esterase (Negative) Urine RBC (0-2) /HPF Urine WBC (0-5) /HPF Ur Squamous Epith Cells (0-2) /HPF Urine Bacteria (None Seen) Hyaline Casts (0-2) /LPF COVID-19 ([facility]BIE) Negative (Negative) COVID-19 Clin Com See Note Influenza Type A (PAYAM) (Negative) Influenza Type B (PAYAM) (Negative) Influenza A & B Note 07/05/22 Range/Units 16:22 WBC (4.8-10.8) X10*3/uL RBC (4.20-5.50) X10*6/uL Hgb (12.0-16.0) g/dl Hct (37.0-47.0) % MCV (80.0-98.0) fL MCH (27.0-33.0) pg MCHC (31.0-35.0) g/dl RDW (11.0-16.0) % Plt Count (160-400) X10*3/uL MPV (9.4-12.3) fL Immature Gran % (Auto) (0.0-0.4) % Neut % (Auto) (45-73) % Lymph % (Auto) (20-40) % Harlan % (Auto) (2-11) % Eos % (Auto) (0-4) % Baso % (Auto) (0-2) % Lymph # (Auto) (1.2-4.9) X10*3/uL [place] # (Auto) (0.1-1.2) X10*3/uL Eos # (Auto) (0.0-0.4) X10*3/uL Baso # (Auto) (0.0-0.2) X10*3/uL Abs Immat Gran (auto) (0.00-0.03) X10*3/uL Absolute Neuts (auto) (2.0-8.3) x10*3/uL Absolute Nucleated RBC (0.0-0.012) X10*3/uL Nucleated RBC % (auto) (0.0-0.2) /100WBC ESR (0-20) MM/HR Sodium (135-145) mmol/L Potassium (3.3-5.1) mmol/L Chloride (96-108) mmol/L Carbon Dioxide (22-29) mmol/L Anion Gap (12-20) BUN (9-16) mg/dL Creatinine (0.5-1.4) mg/dL Estim Creat Clear Calc Estimated GFR Random Glucose (60-115) mg/dL Lactic Acid (0.5-2.0) mmol/L Calcium (8.4-10.2) mg/dL Total Bilirubin (0.0-1.0) mg/dL AST (5-31) U/L ALT (0-31) U/L Alkaline Phosphatase (39-117) U/L C-Reactive Protein (< or = 0.50) mg/dL Total Protein (6.5-8.0) g/dL Albumin (3.5-5.0) g/dL Lipase (8-78) U/L Urine Color Urine Appearance Urine pH (5.0-9.0) Ur Specific [place] (1.005-1.025) Urine Protein (Neg-Trace) mg/dL Urine Glucose (UA) (Negative) mg/dL Urine Ketones (Negative) mg/dL Urine Blood (Negative) Urine Nitrite (Negative) Ur Leukocyte Esterase (Negative) Urine RBC (0-2) /HPF Urine WBC (0-5) /HPF Ur Squamous Epith Cells (0-2) /HPF Urine Bacteria (None Seen) Hyaline Casts (0-2) /LPF COVID-19 ([facility]) (Negative) COVID-19 Clin Com Influenza Type A (PAYAM) Negative (Negative) Influenza Type B (PAYAM) Negative (Negative) Influenza A & B Note See Note <Taryn Mcgillkristian Deutsch, GRAPHIC ART TECHNICIAN - Last Filed: 07/05/22 16:03> Lab Results 07/05/22 07/05/22 07/05/22 Range/Units 16:19 16:21 16:21 WBC 3.0 L (4.8-10.8) X10*3/uL RBC 5.92 H D (4.20-5.50) X10*6/uL Hgb 16.2 H D (12.0-16.0) g/dl Hct 49.8 H D (37.0-47.0) % MCV 84.1 (80.0-98.0) fL MCH 27.4 (27.0-33.0) pg MCHC 32.5 (31.0-35.0) g/dl RDW 13.6 (11.0-16.0) % Plt Count 256 (160-400) X10*3/uL MPV 8.9 L (9.4-12.3) fL Immature Gran % (Auto) 0.3 (0.0-0.4) % Neut % (Auto) 49.2 (45-73) % Lymph % (Auto) 33.9 (20-40) % Harlan % (Auto) 12.9 H (2-11) % Eos % (Auto) 3.4 (0-4) % Baso % (Auto) 0.3 (0-2) % Lymph # (Auto) 1.0 L (1.2-4.9) X10*3/uL Harlan # (Auto) 0.4 (0.1-1.2) X10*3/uL Eos # (Auto) 0.1 (0.0-0.4) X10*3/uL Baso # (Auto) 0.0 (0.0-0.2) X10*3/uL Abs Immat Gran (auto) 0.01 (0.00-0.03) X10*3/uL Absolute Neuts (auto) 1.5 L (2.0-8.3) x10*3/uL Absolute Nucleated RBC 0.000 (0.0-0.012) X10*3/uL Nucleated RBC % (auto) 0.0 (0.0-0.2) /100WBC ESR 16 (0-20) MM/HR Sodium (135-145) mmol/L Potassium (3.3-5.1) mmol/L Chloride (96-108) mmol/L Carbon Dioxide (22-29) mmol/L Anion Gap (12-20) BUN (9-16) mg/dL Creatinine (0.5-1.4) mg/dL Estim Creat Clear Calc Estimated GFR Random Glucose (60-115) mg/dL Lactic Acid (0.5-2.0) mmol/L Calcium (8.4-10.2) mg/dL Total Bilirubin (0.0-1.0) mg/dL AST (5-31) U/L ALT (0-31) U/L Alkaline Phosphatase (39-117) U/L C-Reactive Protein (< or = 0.50) mg/dL Total Protein (6.5-8.0) g/dL Albumin (3.5-5.0) g/dL Lipase (8-78) U/L Urine Color Dark Yellow Urine Appearance Cloudy Urine pH 5.5 (5.0-9.0) Ur Specific [place] >= 1.030 H (1.005-1.025) Urine Protein 30 (1+) H (Neg-Trace) mg/dL Urine Glucose (UA) Negative (Negative) mg/dL Urine Ketones Trace (Negative) mg/dL Urine Blood Negative (Negative) Urine Nitrite Negative (Negative) Ur Leukocyte Esterase Negative (Negative) Urine RBC 0-2 (0-2) /HPF Urine WBC 0-5 (0-5) /HPF Ur Squamous Epith Cells 11-20 (0-2) /HPF Urine Bacteria Trace (None Seen) Hyaline Casts 6-10 (0-2) /LPF COVID-19 ([facility]) (Negative) COVID-19 Clin Com Influenza Type A (PAYAM) (Negative) Influenza Type B (PAYAM) (Negative) Influenza A & B Note 07/05/22 07/05/22 07/05/22 Range/Units 16:21 16:21 16:22 WBC (4.8-10.8) X10*3/uL RBC (4.20-5.50) X10*6/uL Hgb (12.0-16.0) g/dl Hct (37.0-47.0) % MCV (80.0-98.0) fL MCH (27.0-33.0) pg MCHC (31.0-35.0) g/dl RDW (11.0-16.0) % Plt Count (160-400) X10*3/uL MPV (9.4-12.3) fL Immature Gran % (Auto) (0.0-0.4) % Neut % (Auto) (45-73) % Lymph % (Auto) (20-40) % [place] % (Auto) (2-11) % Eos % (Auto) (0-4) % Baso % (Auto) (0-2) % Lymph # (Auto) (1.2-4.9) X10*3/uL [place] # (Auto) (0.1-1.2) X10*3/uL Eos # (Auto) (0.0-0.4) X10*3/uL Baso # (Auto) (0.0-0.2) X10*3/uL Abs Immat Gran (auto) (0.00-0.03) X10*3/uL Absolute Neuts (auto) (2.0-8.3) x10*3/uL Absolute Nucleated RBC (0.0-0.012) X10*3/uL Nucleated RBC % (auto) (0.0-0.2) /100WBC ESR (0-20) MM/HR Sodium 139 (135-145) mmol/L Potassium 4.0 (3.3-5.1) mmol/L Chloride 108 (96-108) mmol/L Carbon Dioxide 21 L (22-29) mmol/L Anion Gap 14 (12-20) BUN 13 (9-16) mg/dL Creatinine 0.82 (0.5-1.4) mg/dL Estim Creat Clear Calc 89.2 Estimated GFR > 60 Random Glucose 83 (60-115) mg/dL Lactic Acid 0.8 (0.5-2.0) mmol/L Calcium 9.3 (8.4-10.2) mg/dL Total Bilirubin 0.3 (0.0-1.0) mg/dL AST 22 (5-31) U/L ALT 16 (0-31) U/L Alkaline Phosphatase 95 (39-117) U/L C-Reactive Protein 2.68 H (< or = 0.50) mg/dL Total Protein 8.3 H (6.5-8.0) g/dL Albumin 4.6 (3.5-5.0) g/dL Lipase 13 (8-78) U/L Urine Color Urine Appearance Urine pH (5.0-9.0) Ur Specific [place] (1.005-1.025) Urine Protein (Neg-Trace) mg/dL Urine Glucose (UA) (Negative) mg/dL Urine Ketones (Negative) mg/dL Urine Blood (Negative) Urine Nitrite (Negative) Ur Leukocyte Esterase (Negative) Urine RBC (0-2) /HPF Urine WBC (0-5) /HPF Ur Squamous Epith Cells (0-2) /HPF Urine Bacteria (None Seen) Hyaline Casts (0-2) /LPF COVID-19 ([facility]) Negative (Negative) COVID-19 Clin Com See Note Influenza Type A (PAYAM) (Negative) Influenza Type B (PAYAM) (Negative) Influenza A & B Note 07/05/22 Range/Units 16:22 WBC (4.8-10.8) X10*3/uL RBC (4.20-5.50) X10*6/uL Hgb (12.0-16.0) g/dl Hct (37.0-47.0) % MCV (80.0-98.0) fL MCH (27.0-33.0) pg MCHC (31.0-35.0) g/dl RDW (11.0-16.0) % Plt Count (160-400) X10*3/uL MPV (9.4-12.3) fL Immature Gran % (Auto) (0.0-0.4) % Neut % (Auto) (45-73) % Lymph % (Auto) (20-40) % [place] % (Auto) (2-11) % Eos % (Auto) (0-4) % Baso % (Auto) (0-2) % Lymph # (Auto) (1.2-4.9) X10*3/uL [place] # (Auto) (0.1-1.2) X10*3/uL Eos # (Auto) (0.0-0.4) X10*3/uL Baso # (Auto) (0.0-0.2) X10*3/uL Abs Immat Gran (auto) (0.00-0.03) X10*3/uL Absolute Neuts (auto) (2.0-8.3) x10*3/uL Absolute Nucleated RBC (0.0-0.012) X10*3/uL Nucleated RBC % (auto) (0.0-0.2) /100WBC ESR (0-20) MM/HR Sodium (135-145) mmol/L Potassium (3.3-5.1) mmol/L Chloride (96-108) mmol/L Carbon Dioxide (22-29) mmol/L Anion Gap (12-20) BUN (9-16) mg/dL Creatinine (0.5-1.4) mg/dL Estim Creat Clear Calc Estimated GFR Random Glucose (60-115) mg/dL Lactic Acid (0.5-2.0) mmol/L Calcium (8.4-10.2) mg/dL Total Bilirubin (0.0-1.0) mg/dL AST (5-31) U/L ALT (0-31) U/L Alkaline Phosphatase (39-117) U/L C-Reactive Protein (< or = 0.50) mg/dL Total Protein (6.5-8.0) g/dL Albumin (3.5-5.0) g/dL Lipase (8-78) U/L Urine Color Urine Appearance Urine pH (5.0-9.0) Ur Specific [place] (1.005-1.025) Urine Protein (Neg-Trace) mg/dL Urine Glucose (UA) (Negative) mg/dL Urine Ketones (Negative) mg/dL Urine Blood (Negative) Urine Nitrite (Negative) Ur Leukocyte Esterase (Negative) Urine RBC (0-2) /HPF Urine WBC (0-5) /HPF Ur Squamous Epith Cells (0-2) /HPF Urine Bacteria (None Seen) Hyaline Casts (0-2) /LPF COVID-19 ([facility]) (Negative) COVID-19 Clin Com Influenza Type A (PAYAM) Negative (Negative) Influenza Type B (PAYAM) Negative (Negative) Influenza A & B Note See Note <Renee Trevizo NP - Last Filed: 07/05/22 21:53> Independent Interpretation I performed an independent interpretation of an: CT Scan <Renee Trevizo NP - Last Filed: 07/05/22 21:53> Interpretation: EXAMINATION: XR forearm LT 2V, XR hand wrist LT CLINICAL INFORMATION: Reason for Exam fracture COMPARISON: None. TECHNIQUE: 3 view series left forearm; 3 view series left wrist. FINDINGS: Left wrist: An oblique fracture of the fourth proximal phalanx is identified without definitive intra-articular extension. No associated erosive osseous lesion. A 4 mm well-corticated ossific body is present adjacent to the radial aspect of the fifth proximal interphalangeal joint and may represent a chronic posttraumatic, ununited fracture fragment. The distal radius appears intact. Left forearm: No fractures or acute appearing subluxations of the former visualized. A chronic appearing 2 mm rounded calcification is present in the antecubital region and may represent a phlebolith. XR/XR hand wrist LT IMPRESSION: Left wrist and left forearm: *Acute displaced oblique fracture of the fourth proximal phalanx. *4 mm well-corticated ossific body along the radial aspect of the fifth proximal interphalangeal joint which may represent the sequela of remote trauma. If clinical concern is present for acute on chronic injury in this region, recommend dedicated hand radiographs for further evaluation.? <Renee Trevizo NP - Last Filed: 07/05/22 21:53> Independent Historian Clinical information obtained from an independent historian. History obtained from or confirmed by: Spouse <Renee Trevizo NP - Last Filed: 07/05/22 21:53> External Record Review External record reviewed: Inpatient record, Outpatient record and Prior outpatient labs <Renee Nesbitt NP - Last Filed: 07/05/22 21:53> Prescription Management I considered prescription management with: Other (Fluids) <Renee Trevizo NP - Last Filed: 07/05/22 21:53> Chronic Conditions Patient?s care impacted by: Other (Gastric bypass) <Renee Trevizo NP - Last Filed: 07/05/22 21:53> Discharge Plan Discharge Clinical Impression: Partial bowel obstruction, Dehydration, Nausea, vomiting, and diarrhea, Fever <FER Vieira Last Filed: 07/05/22 16:03> Patient Disposition: Admitted As Inpatient <Taryn Deutsch CNP - Last Filed: 07/05/22 16:03> Prescriptions: No Action hydroxyzine HCl 25 mg tablet 25 mg PO TID PRN (Reason: anxiety) Qty: 7 0RF <Taryn Deutsch CNP - Last Filed: 07/05/22 16:03>
[2022-07-05 16:01] VITALS: BP 112/81; PULSE 75; RESP 16; TEMP 36.9; O2SAT 99; BMI 36.5
[2022-07-05 16:29] LABS: MANUAL DIFF FLAG NO
[2022-07-05 16:31] LABS: Basophils Percent Auto 0.3 % (0-2); Eosinophils Absolute Auto 0.1 X10*3/uL (0.0-0.4); Eosinophils Percent Auto 3.4 % (0-4); Hematocrit 49.8 % (37.0-47.0); Hemoglobin 16.2 g/dl (12.0-16.0); Imm Gran Abs Auto 0.01 X10*3/uL (0.00-0.03); Imm Gran Pct Auto 0.3 % (0.0-0.4); Lymphocytes Percent Auto 33.9 % (20-40); Mean Corpuscular HGB Conc 32.5 g/dl (31.0-35.0); Mean Corpuscular Hemoglobin 27.4 pg (27.0-33.0); Mean Corpuscular Volume 84.1 fL (80.0-98.0); Mean Platelet Volume 8.9 fL (9.4-12.3); Monocytes Absolute Auto 0.4 X10*3/uL (0.1-1.2); Monocytes Percent Auto 12.9 % (2-11); Neutrophils Absolute Auto 1.5 x10*3/uL (2.0-8.3); Neutrophils Percent Auto 49.2 % (45-73); Platelet Count 256 X10*3/uL (160-400); Red Blood Count 5.92 X10*6/uL (4.20-5.50); Red Cell Distribution Width 13.6 % (11.0-16.0)
[2022-07-05 16:32] LABS: Appearance Urine Cloudy; Color Urine Dark Yellow; Glucose Urine UA Negative (Negative); Leukocyte Esterase Urine Negative (Negative); Nitrite Urine Negative (Negative); PH 5.5 (5.0-9.0); Specific Gravity - Urine >= 1.030 (1.005-1.025); UMIC TRIGGER UACC YES; Urine Blood Negative (Negative); Urine Ketones Trace mg/dL (Negative); Urine Protein 30 (1+) mg/dL (Neg-Trace)
[2022-07-05 16:40] LABS: Lactic Acid 0.8 mmol/L (0.5-2.0)
[2022-07-05 16:45] LABS: Alanine Aminotransferase 16 U/L (0-31); Albumin Level 4.6 g/dL (3.5-5.0); Alkaline Phosphatase 95 U/L (39-117); Anion Gap 14 (12-20); Aspartate Amino Transferase 22 U/L (5-31); Bilirubin Total 0.3 mg/dL (0.0-1.0); Blood Urea Nitrogen 13 mg/dL (9-16); C Reactive Protein 2.68 mg/dL (< or = 0.50); Calcium 9.3 mg/dL (8.4-10.2); Carbon Dioxide 21 mmol/L (22-29); Chloride 108 mmol/L (96-108); Creatinine Clr Calc Pharmacy 89.2; Estimated Glomerular Filt Rate > 60; Glucose Random 83 mg/dL (60-115); Lipase 13 U/L (8-78); Sodium 139 mmol/L (135-145); Total Protein 8.3 g/dL (6.5-8.0)
[2022-07-05 16:47] LABS: IDNOW Serial# BCCEAD1C; Influenza A Negative (Negative); Influenza B2 Negative (Negative)
[2022-07-05 16:47] LABS: Bacteria Urine Trace (None Seen); RBC Urine 0-2 /HPF (0-2); WBC Urine 0-5 /HPF (0-5)
[2022-07-05 16:48] LABS: COVID-19 Test Negative (Negative); IDNOW Serial# 16C4AD1C
[2022-07-05 17:05] LABS: Erythrocyte Sedimentation Rate 16 MM/HR (0-20)
[2022-07-05] MEDS: 0.9 % Sodium Chloride 1,000 ML 999 ML IVCONT ×2 (17:37)
[2022-07-05] MEDS: ondansetron HCL 4 MG/2 ML VIAL IVPUSH (17:37)
--- NOTE | 2022-07-05 21:43 | PM.CNGS ---
History of Present Illness Consult details Consult date: 07/05/22 Reason for consult: abdominal pain Narrative: 51 yo female s/p LSG 07/20/[address] Box, not seen in the office since 03/05/21, presented to the ER with a 2 day hx of abdominal pain, nausea, and diarrhea. She was found to have a mild leukopenia and evidence of dehydration by way of hemoconcentration. She had a noncontrast CT of her abdomen and was also found to have distended loops of bowel consistent with a gastroenteritis and possible ileus as well as mesenteric lymphadenopathy. Again noted was fat containing anterior abdominal wall hernia and mesh from previous hernia repair. She was given Zofran and 2 L IVF in the ED but was still not feeling well enough to go home. She states she has not been followed in the outpt setting by Dr Box in the last year and would like to resume care with [facility] weight management program. Admission was requested by the ED. [facility] Past Medical History Medical History Asthma Insomnia Obesity (BMI 30-39.9) Sleep apnea with use of continuous positive airway pressure (CPAP) Urinary incontinence Family History Family History Father DM (diabetes mellitus) HTN (hypertension) Mother Dementia Uterine cancer Brother No problems noted. Brother No problems noted. Brother No problems noted. Sister No problems noted. Sister No problems noted. Sister No problems noted. Sister No problems noted. Sister No problems noted. Sister No problems noted. Son No problems noted. Son No problems noted. Son No problems noted. Daughter No problems noted. Surgical History Surgical History H/O oophorectomy Hx laparoscopic cholecystectomy Hx of colonoscopy Hx of tubal ligation S/P hernia repair S/P laparoscopic sleeve gastrectomy S/P BARBRA (total abdominal hysterectomy) Status post breast reduction Social History Social History Alcohol intake: current Alcohol intake frequency: a few times a month Patient Tobacco Use Status: Never used Tobacco Smoked in Last 30 Days: No Use of substances other than those prescribed or required for medical reasons: No Advance Directives: No Advance Directives Information Provided: No Nutrition Risks: No Nutritional Risk Patient : No Meds Allergies Allergy/AdvReac Type Severity Reaction Status Date / Time Iodinated Contrast Media AdvReac Intermediate VOMITING Verified 07/05/22 16:03 [IV CONTRAST] Home Medications Medication Instructions Recorded Confirmed Last Taken Type albuterol sulfate 90 mcg/actuation 2 puff inhalation QID PRN Wheezing 07/06/22 07/06/22 Unknown History aerosol inhaler (Ventolin HFA) cholecalciferol (vitamin D3) 50 1 cap DAILY 07/06/22 07/06/22 Unknown History mcg (2,000 unit) capsule ibuprofen 200 mg tablet 400 mg PO Q6H PRN pain or headache 07/06/22 07/06/22 Unknown History trazodone 50 mg tablet 1 tab BEDTIME 07/06/22 07/06/22 Unknown History Physical Exam Vital Signs: Vital Signs: Last Vital Signs Temp 98.5 F 07/05/22 16:01 Pulse 75 07/05/22 16:01 Resp 16 07/05/22 16:01 BP 112/81 07/05/22 16:01 Pulse Ox 99 07/05/22 16:01 O2 Del Method 07/05/22 16:01 BMI result Body Mass Index 36.5 Const: General: cooperative, healthy appearing and no acute distress Orientation/consciousness: patient oriented x3 HEENT: Head: Yes normal to inspection Ears: hearing grossly normal bilaterally General nose exam: Normal external nose present Face and sinus: Yes normal facial exam Eyes: General: appearance normal, both eyes and all related structures Resp: Effort & Inspection: normal respiratory effort Auscultation: clear to auscultation bilaterally Cardio: Rate: regular rate Rhythm: regular rhythm Heart sounds: S1 normal heart sound present and S2 normal heart sound present GI: Inspection: Yes normal to inspection, No distended, Yes incision (multiple well healed incisions of the abdomen) and Yes obesity Palpation (GI): Soft to palpation, nontender and no guarding Auscultation: Hypoactive bowel sounds present Skin: General skin exam: no rashes or lesions noted Neuro: General: patient oriented x3 Extrem: General: No edema Psych: Appearance: grossly normal Mental Status: mental status grossly normal Speech and movement: Normal speech and movement present Affect: normal affect Attitude: cooperative Results Labs 07/05/22 16:21 07/05/22 16:21 Labs: Abnormal lab results 07/05/22 07/05/22 07/05/22 Range/Units 16:19 16:21 16:21 WBC 3.0 L (4.8-10.8) X10*3/uL RBC 5.92 H D (4.20-5.50) X10*6/uL Hgb 16.2 H D (12.0-16.0) g/dl Hct 49.8 H D (37.0-47.0) % MPV 8.9 L (9.4-12.3) fL [place] % (Auto) 12.9 H (2-11) % Lymph # (Auto) 1.0 L (1.2-4.9) X10*3/uL Absolute Neuts (auto) 1.5 L (2.0-8.3) x10*3/uL Carbon Dioxide 21 L (22-29) mmol/L C-Reactive Protein 2.68 H (< or = 0.50) mg/dL Total Protein 8.3 H (6.5-8.0) g/dL Ur Specific [place] >= 1.030 H (1.005-1.025) Urine Protein 30 (1+) H (Neg-Trace) mg/dL Short CBC 07/05/22 Range/Units 16:21 WBC 3.0 L (4.8-10.8) X10*3/uL Hgb 16.2 H D (12.0-16.0) g/dl Hct 49.8 H D (37.0-47.0) % Plt Count 256 (160-400) X10*3/uL BMP 07/05/22 16:21 Sodium 139 Potassium 4.0 Chloride 108 Carbon Dioxide 21 L BUN 13 Creatinine 0.82 Calcium 9.3 Liver Function 07/05/22 Range/Units 16:21 Total Bilirubin 0.3 (0.0-1.0) mg/dL AST 22 (5-31) U/L ALT 16 (0-31) U/L Alkaline Phosphatase 95 (39-117) U/L Albumin 4.6 (3.5-5.0) g/dL Urine 07/05/22 Range/Units 16:19 Urine Color Dark Yellow Urine Appearance Cloudy Urine pH 5.5 (5.0-9.0) Ur Specific [place] >= 1.030 H (1.005-1.025) Urine Protein 30 (1+) H (Neg-Trace) mg/dL Urine Glucose (UA) Negative (Negative) mg/dL All other labs normal. Imaging Abdomen CT scan report/results: report reviewed and image reviewed Additional studies: IMPRESSION: 1.? Multiple distended fluid-filled loops of small bowel with also fluid in the colon/rectum, and associated mesenteric lymphadenopathy and mild mesenteric fat stranding, suggesting gastroenteritis and diarrhea. 2.? Nonspecific clumped loops of mildly distended small bowel in the left upper abdomen that are likely reactive in the setting of gastroenteritis related with focal ileus, or much less likely related with a developing partial bowel obstruction within an internal hernia. Attention on follow-up recommended. 3.? Redemonstration of small fat-containing anterior abdominal wall hernias just superior to the abdominal wall mesh. 4.? Mesenteric lymphadenopathy, likely reactive. Attention on follow-up recommended. Assessment and Plan (1) Gastroenteritis: Status: Acute Likely viral in origin given presentation, leukopenia and self limiting resolution. She is feeling much better this morning and wants to go home. Recc liquid diet today with 2 celebrate 4:1 shakes 2 scoops each with lactaid milk that she tolerates and one fairlife shake today. Starting tomorrow 2 celebrate 4:1 shakes with 2 scoops each and a yogurt daily. If she tolerates that well will adjust meal plan in f/u in the office this week. (2) Obesity (BMI 30-39.9): Status: Acute She states she would like to lose another 20-25 pounds and wants to f/u in the [facility]. Will arrange folllow up (3) Positive H. pylori test: Status: Acute Neg H Pylori on EGD bx in Mar 2018 but pos gastritis. Pos H Pylori ob stomach biopsy from gastric surgery in 2019 but unclear if ever treated. She does not endorse reflux symptoms at this time although will re-test h pylori in the office on follow up. Will arrange for an UGI in the office and if that does show reflux, will arrange for EGD with Dr Argueta and then bx for h pylori at that time. If neg UGI then H Pylori breath test. (4) S/P laparoscopic sleeve gastrectomy: Status: Acute will arrange for f/u in the office (5) Leukopenia: Status: Acute appears to be a long-standing issue, worse given viral illness on presentation. Consider referral to hematology. (6) Hiatal hernia: Status: Acute Evidence of HH on CT. Will encourage continued weight loss and possible surgical repair as well as anterior wall hernia at that time. Plan Discussed in full with attending Dr Unger Time Spent With Patient Time: Total time managing care of this patient today ____ minutes. Procedures Date of Service Date of Service: 07/06/22
[2022-07-05] MEDS: Famotidine/PF 20 MG/2 ML VIAL IVPUSH (22:00)
[2022-07-05] MEDS: Dextrose 5 % and 0.9 % NaCl 1,000 ML 150 ML IVCONT (22:03)
[2022-07-05 22:08] VITALS: BP 120/76; PULSE 65; RESP 16; O2SAT 98
--- NOTE | 2022-07-05 23:00 | PC.NURSE ---
This singer songwriter assumed care of this Pt at 2300. Pt A&Ox4, denies any pain. IV fluids running as ordered.
[2022-07-06 01:00] VITALS: BP 103/67; PULSE 66; RESP 16; TEMP 36.8; O2SAT 97
[2022-07-06] MEDS: Dextrose 5 % and 0.9 % NaCl 1,000 ML 150 ML IVCONT (04:43)
[2022-07-06 05:30] VITALS: BP 106/59; PULSE 85; RESP 16; O2SAT 95
--- NOTE | 2022-07-06 06:22 | PC.NURSE ---
Pt refused scheduled dose of zofran, states I'm feeling fine, no nausea .
[2022-07-06 06:45] LABS: Basophils Percent Auto 0.4 % (0-2); Eosinophils Absolute Auto 0.1 X10*3/uL (0.0-0.4); Hemoglobin 12.6 g/dl (12.0-16.0); Imm Gran Abs Auto 0.01 X10*3/uL (0.00-0.03); Imm Gran Pct Auto 0.4 % (0.0-0.4); MANUAL DIFF FLAG SCAN; Mean Corpuscular HGB Conc 32.3 g/dl (31.0-35.0); Mean Corpuscular Hemoglobin 27.3 pg (27.0-33.0); Mean Corpuscular Volume 84.4 fL (80.0-98.0); Mean Platelet Volume 8.6 fL (9.4-12.3); Monocytes Absolute Auto 0.5 X10*3/uL (0.1-1.2); Monocytes Percent Auto 23.2 % (2-11); Neutrophils Absolute Auto 0.6 x10*3/uL (2.0-8.3); Platelet Count 200 X10*3/uL (160-400); Red Blood Count 4.62 X10*6/uL (4.20-5.50); Red Cell Distribution Width 13.5 % (11.0-16.0); SCAN SMEAR FLAG 1
[2022-07-06 06:50] LABS: White Blood Count 2.2 X10*3/uL (4.8-10.8)
[2022-07-06 07:15] LABS: Anion Gap 10 (12-20); Blood Urea Nitrogen 10 mg/dL (9-16); Carbon Dioxide 21 mmol/L (22-29); Chloride 114 mmol/L (96-108); Creatinine Clr Calc Pharmacy 107.5; Estimated Glomerular Filt Rate > 60; Glucose Random 94 mg/dL (60-115); Potassium 3.7 mmol/L (3.3-5.1); Sodium 141 mmol/L (135-145)
[2022-07-06 07:32] LABS: SLIDE REVIEW VERIFIED
[2022-07-06 07:43] VITALS: BP 94/47; PULSE 59; RESP 14; TEMP 36.8; O2SAT 98
--- NOTE | 2022-07-06 08:17 | PHA.MEDREC ---
Pharmacy Consult ? Medication Reconciliation Pharmacy has completed the medication reconciliation. Patient reported all medications. Zenobia Rios, TiffanyD
--- NOTE | 2022-07-06 08:56 | PC.NURSE ---
hosp at bedside, pt aware of plan of care.
[2022-07-06 09:26] VITALS: BP 113/72; PULSE 59; RESP 16; TEMP 36.8; O2SAT 99
[2022-07-06] MEDS: Famotidine/PF 20 MG/2 ML VIAL IVPUSH (09:40)
[2022-07-06] MEDS: 0.9 % Sodium Chloride Flush 3 ML SYRINGE IVFLUSH (09:40)
--- NOTE | 2022-07-06 10:22 | PM.DS ---
DS: Providers Provider Date of Service: 07/06/22 Date of admission: 07/05/22 21:34 Primary care physician: [facility] Consults: 07/05/22 18:43 Consult to Bariatric Surgery Stat Consulting Provider: Eric Acevedo Reason for consultation: Partial bowel obstruction DS: Diagnosis Discharge Diagnosis (1) Gastroenteritis: Status: Acute (2) Obesity (BMI 30-39.9): Status: Acute (3) Positive H. pylori test: Status: Acute (4) S/P laparoscopic sleeve gastrectomy: Status: Acute (5) Leukopenia: Status: Acute (6) Hiatal hernia: Status: Acute DS: Summary Hospital Course Hospital Course: 51 yo female presented to the ER with a 2 day hx of abdominal pain, nausea and diarrhea. She was found to have lekocytosis and CT evidence of dilated fluid filled lops of bowel. She was given Zofran, IVF and monitored overnight. This morning she is feeling much better. No complaints of abdominal pain, no further diarrhea and she has been ambulating in the christine without difficulty. She is tolerating PO liquids and wants to go home. Labs continued to show a leukocytosis however she has had this for the last several years, possibly related to poor nutrition or possibly underlying myelodysplastic pathology. Will consider referral to Heme/Onc as outpt. She has hx sleeve gastrectomy by Dr Box in july 2019. She was last seen in the office in March 2021 and has not followed up with anyone since. She states she would like to lose 25 pounds and wants to follow up with us in the office. She was given a meal plan until f/u this week. CT revealed evidence of hiatal hernia although she does not endorse GERD sx. Will check UGI as outpt and if pos will have her see Dr Argueta for EGD and bx for H Pylori that was neg on EGD in 2017 but positive on gastric pathology from her sleeve in 2019. Status at Discharge Functional status at discharge: independent ambulation Overall status at discharge: patient is not back to baseline Time Spent with Patient Time attestation: Total time managing care of this patient today 45 minutes. Discharge coordination time: Greater than 30 minutes Quality: Safe Use of Opioids Does Pt have an Active Cancer Diagnosis on the Problem List?: No Quality: Stroke Does the patient have a stroke diagnosis?: No Physical Exam Vital Signs: Vital Signs: Last Vital Signs Temp 98.2 F 07/06/22 09:26 Pulse 59 07/06/22 09:26 Resp 16 07/06/22 09:26 BP 113/72 07/06/22 09:26 Pulse Ox 99 07/06/22 09:26 O2 Del Method 07/06/22 09:26 BMI result Body Mass Index 36.5 Const: General: cooperative, healthy appearing and no acute distress Orientation/consciousness: patient oriented x3 HEENT: Head: Yes normal to inspection Ears: hearing grossly normal bilaterally General nose exam: Normal external nose present Face and sinus: Yes normal facial exam Eyes: General: appearance normal, both eyes and all related structures Resp: Effort & Inspection: normal respiratory effort Auscultation: clear to auscultation bilaterally Cardio: Rate: regular rate Rhythm: regular rhythm Heart sounds: S1 normal heart sound present and S2 normal heart sound present GI: Inspection: Yes normal to inspection, No distended and Yes obesity Palpation (GI): Soft to palpation, nontender and no guarding Auscultation: normal bowel sounds Skin: General skin exam: no rashes or lesions noted Neuro: General: patient oriented x3 Extrem: General: No edema Psych: Appearance: grossly normal Mental Status: mental status grossly normal Speech and movement: Normal speech and movement present Affect: normal affect Attitude: cooperative DS: Data Data Completed and Pending Labs on day of discharge: Laboratory Results - last 24 hr 07/05/22 07/05/22 07/05/22 16:19 16:21 16:21 WBC 3.0 L RBC 5.92 H D Hgb 16.2 H D Hct 49.8 H D MCV 84.1 MCH 27.4 MCHC 32.5 RDW 13.6 Plt Count 256 MPV 8.9 L Immature Gran % (Auto) 0.3 Neut % (Auto) 49.2 Lymph % (Auto) 33.9 [place] % (Auto) 12.9 H Eos % (Auto) 3.4 Baso % (Auto) 0.3 Lymph # (Auto) 1.0 L [place] # (Auto) 0.4 Eos # (Auto) 0.1 Baso # (Auto) 0.0 Abs Immat Gran (auto) 0.01 Absolute Neuts (auto) 1.5 L Absolute Nucleated RBC 0.000 Nucleated RBC % (auto) 0.0 Smear Tech's Comments ESR 16 Sodium Potassium Chloride Carbon Dioxide Anion Gap BUN Creatinine Estim Creat Clear Calc Estimated GFR Random Glucose Lactic Acid Calcium Total Bilirubin AST ALT Alkaline Phosphatase C-Reactive Protein Total Protein Albumin Lipase Urine Color Dark Yellow Urine Appearance Cloudy Urine pH 5.5 Ur Specific [place] >= 1.030 H Urine Protein 30 (1+) H Urine Glucose (UA) Negative Urine Ketones Trace Urine Blood Negative Urine Nitrite Negative Ur Leukocyte Esterase Negative Urine RBC 0-2 Urine WBC 0-5 Ur Squamous Epith Cells 11-20 Urine Bacteria Trace Hyaline Casts 6-10 COVID-19 (SHELBIE) COVID-19 Clin Com Influenza Type A (PAYAM) Influenza Type B (PAYAM) Influenza A & B Note 07/05/22 07/05/22 07/05/22 16:21 16:21 16:22 WBC RBC Hgb Hct MCV MCH MCHC RDW Plt Count MPV Immature Gran % (Auto) Neut % (Auto) Lymph % (Auto) [place] % (Auto) Eos % (Auto) Baso % (Auto) Lymph # (Auto) [place] # (Auto) Eos # (Auto) Baso # (Auto) Abs Immat Gran (auto) Absolute Neuts (auto) Absolute Nucleated RBC Nucleated RBC % (auto) Smear Tech's Comments ESR Sodium 139 Potassium 4.0 Chloride 108 Carbon Dioxide 21 L Anion Gap 14 BUN 13 Creatinine 0.82 Estim Creat Clear Calc 89.2 Estimated GFR > 60 Random Glucose 83 Lactic Acid 0.8 Calcium 9.3 Total Bilirubin 0.3 AST 22 ALT 16 Alkaline Phosphatase 95 C-Reactive Protein 2.68 H Total Protein 8.3 H Albumin 4.6 Lipase 13 Urine Color Urine Appearance Urine pH Ur Specific [place] Urine Protein Urine Glucose (UA) Urine Ketones Urine Blood Urine Nitrite Ur Leukocyte Esterase Urine RBC Urine WBC Ur Squamous Epith Cells Urine Bacteria Hyaline Casts COVID-19 (SHELBIE) Negative COVID-19 Clin Com See Note Influenza Type A (PAYAM) Influenza Type B (PAYAM) Influenza A & B Note 07/05/22 07/06/22 07/06/22 16:22 06:35 06:35 WBC 2.2 L RBC 4.62 D Hgb 12.6 D Hct 39.0 D MCV 84.4 MCH 27.3 MCHC 32.3 RDW 13.5 Plt Count 200 MPV 8.6 L Immature Gran % (Auto) 0.4 Neut % (Auto) 26.0 L Lymph % (Auto) 46.0 H [place] % (Auto) 23.2 H Eos % (Auto) 4.0 Baso % (Auto) 0.4 Lymph # (Auto) 1.0 L [place] # (Auto) 0.5 Eos # (Auto) 0.1 Baso # (Auto) 0.0 Abs Immat Gran (auto) 0.01 Absolute Neuts (auto) 0.6 L Absolute Nucleated RBC 0.000 Nucleated RBC % (auto) 0.0 Smear Tech's Comments VERIFIED ESR Sodium 141 Potassium 3.7 Chloride 114 H Carbon Dioxide 21 L Anion Gap 10 L BUN 10 Creatinine 0.68 Estim Creat Clear Calc 107.5 Estimated GFR > 60 Random Glucose 94 Lactic Acid Calcium 8.0 L D Total Bilirubin AST ALT Alkaline Phosphatase C-Reactive Protein Total Protein Albumin Lipase Urine Color Urine Appearance Urine pH Ur Specific [place] Urine Protein Urine Glucose (UA) Urine Ketones Urine Blood Urine Nitrite Ur Leukocyte Esterase Urine RBC Urine WBC Ur Squamous Epith Cells Urine Bacteria Hyaline Casts COVID-19 (SHELBIE) COVID-19 Clin Com Influenza Type A (PAYAM) Negative Influenza Type B (PAYAM) Negative Influenza A & B Note See Note Discharge Plan Discharge Anticipated Discharge Date/Time: 07/06/22 11:29 Patient Disposition: Home, Self-Care Discharge Diagnosis: gastroenteritis Referrals: [facility] [Primary Care Provider] - 1 Week Discharge Medications: Continued trazodone 50 mg tablet 1 tab BEDTIME albuterol sulfate [Ventolin HFA] 90 mcg/actuation HFA aerosol inhaler 2 puff INHALATION QID PRN (Reason: Wheezing) cholecalciferol (vitamin D3) 50 mcg (2,000 unit) capsule 1 cap DAILY Discontinued ibuprofen 200 mg Tablet 400 mg PO Q6H PRN (Reason: pain or headache) Discharge Orders: Discharge Order (Routine); Ordered 07/06/22 Ordered By: Eric Acevedo Diet: see below Activity on Discharge: As tolerated Stand Alone Forms: Patient Portal Discharge page Care Plan Goals: weight loss Health Concerns: gastroenteritis, obesity Plan of Treatment: Meal plan: Thursday: celebra 4:1 shakes with 2 scoops each in 8 oz of lactaid milk and a fairlife ready to drink shake. Drink each shake over a 2 hour period, sipping slowly, 1 oz every 15 minutes. Thursday and daily until seen in the office this week: 2 celebrate 4:1 shakes with 2 scoops each in 8 oz lactaid milk and a chinese yogurt. Drink each shake over a 2 hour period, sipping slowly, 1 oz every 15 minutes. Drink 64 oz of fluids daily or more, (water, Propel, crystal light, gatorade zero). Please call the office on Thursday [phone] to arrange to be seen in follow up this week per Eric Acevedo. Please call the office with any questions. Return to the emergency room with any worsening of symptoms Assessment: stable for la home
[2022-07-06] MEDS: Acetaminophen 325 MG TABLET 975 MG PO (10:43)
--- NOTE | 2022-07-06 12:54 | MHC.CM.PN ---
PT DISCHARGED HOME WITH NO SERVICES PRIOR TO SUPERVISOR INSPECTION
== END 2022-07-06 12:00 | disposition home or self-care (01) | DRG 249 ==
LOC: HO.ED 21:53 → HO.EDOVER 21:55
PROVIDERS: Nurse Practitioner Family; Admitting Provider Physician Assistant Surgical; Emergency Provider Emergency Medicine Emergency Medical Services; Visit Provider Physician Assistant Surgical
DX: A08.4 Viral intestinal infection, unspecified (principal); B96.81 Helicobacter pylori [H. pylori] as the cause of diseases classified elsewhere; K44.9 Diaphragmatic hernia without obstruction or gangrene; E66.9 Obesity, unspecified; Z68.36 Body mass index [BMI] 36.0-36.9, adult; E86.0 Dehydration; Z20.822 Contact with and (suspected) exposure to COVID-19; Z91.199 Patient's noncompliance with other medical treatment and regimen due to unspecified reason; Z91.041 Radiographic dye allergy status; Z98.84 Bariatric surgery status; Z79.899 Other long term (current) drug therapy
CPT/HCPCS: 36415; 74176; 80048; 80053; 81001; 83605; 83690; 85025; 85652; 86140; 87502; 87635; 99285; J2405

== ENCOUNTER → 2022-08-06 15:40 | Outpatient (BNVA) | payer MEDICAID, SELFPAY | PROVIDERS: PCP Internal Medicine; Visit Provider Physician Assistant Surgical | DX: E66.9 Obesity, unspecified (principal); Z68.37 Body mass index [BMI] 37.0-37.9, adult | CPT/HCPCS: 99212 ==

== ENCOUNTER 2022-08-11 14:54 | Outpatient (REF) | payer MEDICAID, SELFPAY ==
[2022-08-11 15:39] LABS: Estimated Average Glucose 108 mg/dL; Hemoglobin A1c % 5.4 %
[2022-08-11 15:51] LABS: Alanine Aminotransferase 11 U/L (0-31); Alkaline Phosphatase 81 U/L (39-117); Anion Gap 12 (12-20); Aspartate Amino Transferase 14 U/L (5-31); Bilirubin Total 0.3 mg/dL (0.0-1.0); Blood Urea Nitrogen 10 mg/dL (9-16); Calcium 9.1 mg/dL (8.4-10.2); Carbon Dioxide 28 mmol/L (22-29); Chloride 108 mmol/L (96-108); Cholesterol 195 mg/dL; Estimated Glomerular Filt Rate > 60; Glucose Random 84 mg/dL (60-115); HDL Cholesterol 75 mg/dL; Iron 83 mcg/dL (30-160); LDL Cholesterol Calculated 106 mg/dl; Percent Iron Saturation 30 % (15-50); Potassium 4.1 mmol/L (3.3-5.1); Sodium 144 mmol/L (135-145); Total Iron Binding Capacity 281 mcg/dL (228-428); Triglycerides 74 mg/dL; Unsaturated Iron Binding 198 ug/dL
[2022-08-11 16:19] LABS: Ferritin 96 ng/mL (10-250); Insulin 5 uU/mL (2-29); TSH reflex Free T4 1.01 uIU/mL (0.32-4.0); Vitamin B12 491 pg/mL (200-900); Vitamin D 25-OH Total 11.5 ng/mL (>30)
[2022-08-13 13:49] LABS: Calcium (PTHI) 9.3 mg/dL (8.6-10.4); PTHI 98 pg/mL (16-77)
[2022-08-14 05:44] LABS: Zinc 79 mcg/dL (60-130)
== END 2022-08-11 14:55 | disposition home or self-care (01) ==
LOC: HO.LAB 14:54
PROVIDERS: Visit Provider Physician Assistant Surgical
DX: D72.819 Decreased white blood cell count, unspecified (principal); E66.9 Obesity, unspecified
CPT/HCPCS: 36415; 80053; 80061; 82306; 82607; 82728; 82746; 83036; 83525; 83540; 83970; 84443; 84630; 86140

== ENCOUNTER 2022-08-20 10:52 | Outpatient (REF) | payer MEDICAID, SELFPAY ==
--- NOTE | ~2022-08-20 | MM_ITS ---
EXAMINATION: MM DIAGNOSTIC DIGITAL BREAST TOMOSYNTHESIS, BILATERAL TARGETED RIGHT BREAST ULTRASOUND CLINICAL INFORMATION: Right breast yearly follow-up for calcifications and yearly left breast study. The lifetime risk of breast cancer based on the Tyrer-Cuzick Model is 5.7%. COMPARISON: Mammography: 07/03/2021 and studies dating back to 04/10/2014. TECHNIQUE: Digital breast tomosynthesis is performed in both the craniocaudal and mediolateral oblique views along with computer-aided detection (CAD). Synthesized 2D images are generated from the tomosynthesis. Additional spot magnification views in craniocaudal and 90 degree mediolateral views performed of the right breast as well as spot compression views of the right breast in craniocaudal and mediolateral oblique projections. Targeted right breast ultrasound. FINDINGS: There are scattered areas of fibroglandular density (ACR BI-RADS breast composition Category b). There is a stable parenchymal pattern of the left breast with no new abnormal dominant mass or suspicious grouping of microcalcifications identified. The right breast calcifications are essentially stable and similar in appearance to previous studies and do not require follow-up at this time. There is a stable oval/triangular density about the anterior inferior medial right breast. Adjacent to this there is a new circumscribed density measuring approximately 8 mm in diameter which was not seen on previous studies. Targeted right breast ultrasound was performed which demonstrated a well-circumscribed triangular density at approximately 6 o'clock position 2 cm from the nipple. There is no internal vascularity present. The lesion measures approximately 7 x 6 x 7 mm in size without distal sound enhancement and with edge shadowing but no significant distal sound shadowing. This appears to correspond in size and appearance to the stable structure. Also at the 6 o'clock position approximately 2 cm from nipple there is what appears to be a simple cyst measuring approximately 8 x 4 mm in size with smooth back wall and increased through sound transmission. The lesion is wider than it is tall. Results are discussed with the patient at time of visit. MM/MM tomosynthesis diagnostic BI IMPRESSION: New right breast density about the inferior medial aspect appears to represent a cyst with an adjacent stable hypoechoic lesion which appears solid. To ensure that these 2 regions remain stable recommend a six-month follow-up mammogram and ultrasound. Right breast calcifications are stable and do not require follow-up at this time. ASSESSMENT: BI-RADS 3: Probably Benign. RECOMMENDATION: Diagnostic mammography in 6 months. This patient's information was entered into a reminder system with a target due date for their next mammogram.
== END 2022-08-20 10:53 | disposition home or self-care (01) ==
LOC: HO.MAMMO 10:52
PROVIDERS: PCP Internal Medicine; Visit Provider Internal Medicine
DX: R92.1 Mammographic calcification found on diagnostic imaging of breast (principal)
CPT/HCPCS: 76642; 77062; 77066

== ENCOUNTER 2023-02-19 12:49 | Outpatient (REF) | payer MEDICAID, SELFPAY ==
--- NOTE | ~2023-02-19 | MM_ITS ---
EXAMINATION: MM DIAGNOSTIC DIGITAL BREAST TOMOSYNTHESIS, RIGHT US BREAST LIMITED, RIGHT MAMMOGRAPHY: CLINICAL INFORMATION: 6 month follow-up for right breast density approximate 6:00 axis, with an abutting simple cyst measuring 7 mm, also approximately 6:00 axis. COMPARISON: Mammography: Mammography and ultrasound 08/20/2022 Mammography 07/03/2021, 09/19/2020, 12/21/2019. TECHNIQUE: Digital right breast tomosynthesis is performed in both the craniocaudal and mediolateral oblique views along with computer-aided detection (CAD). Synthesized 2D images are generated from the tomosynthesis. FINDINGS: There are scattered areas of fibroglandular density (ACR BI-RADS breast composition Category b). Scattered right breast dystrophic appearing calcifications are essentially stable and similar appearance to previous studies, most likely related to breast reduction. These do not require follow-up. There is a stable overall/triangular density about the anterior/inferior medial right breast, with adjacent circumscribed density measuring 8 mm in diameter consistent with simple cyst seen on ultrasound. Otherwise, no suspicious masses, suspicious grouped microcalcifications, or developing areas of architectural distortion are present within the right breast. ULTRASOUND: CLINICAL INFORMATION: 6 month follow-up for right breast density approximate 6:00 axis, with an abutting simple cyst measuring 7 mm, also approximately 6:00 axis. COMPARISON: 08/20/2022 TECHNIQUE: Targeted sonographic evaluation was performed using a high frequency linear transducer. Attention was directed to the 6:00 axis of the right breast. Selected archived documentation. FINDINGS: RIGHT BREAST: There is a stable simple cyst in the 6:00 axis, 3 cm from the nipple, measuring 7 mm in length. Stable mildly hypoechoic triangular mass is present with minor posterior shadowing measuring 7 x 6 x 6 mm, which per the technologist appears to lie directly along the reduction scar and is most consistent with scarring. There has been no change in this finding and there is no internal color vascularity. This finding is benign. MM/MM tomosynthesis diagnostic RT IMPRESSION: There are no significant changes from prior study. No right breast findings suspicious for malignancy. Triangular hypoechoic unchanged mass measuring 7 x 6 x 6 mm is completely unchanged, and per technologist lies along the inferior reduction scar, consistent with scarring. This finding is benign. Recommend the patient resume routine annual screening mammography. OVERALL ASSESSMENT: Mammography: BI-RADS 2 - Benign Findings Ultrasound: BI-RADS 2 - Benign Findings RECOMMENDATION: 1 year F/U Results were provided to the patient at time of visit by the technologist. This patient's information was entered into a reminder system with a target due date for their next mammogram.
== END 2023-02-19 12:50 | disposition home or self-care (01) ==
LOC: HO.MAMMO 12:49
PROVIDERS: Visit Provider Family Medicine
DX: R92.2 Inconclusive mammogram (principal)
CPT/HCPCS: 76642; 77061; 77065

== ENCOUNTER → 2023-02-19 13:30 | Outpatient (BNV) | payer MEDICAID, SELFPAY | PROVIDERS: Visit Provider Radiology Diagnostic Radiology | DX: N60.01 Solitary cyst of right breast (principal); R92.1 Mammographic calcification found on diagnostic imaging of breast; N64.89 Other specified disorders of breast | CPT/HCPCS: 76642; 77061; 77065; G0279 ==

== ENCOUNTER 2023-03-20 17:53 | Outpatient (REF) | payer MEDICAID, SELFPAY ==
[2023-03-23 17:28] LABS: C. trachomatis RNA TMA NOT DETECTED (NOT DETECTED); N. gonorrhoeae RNA TMA NOT DETECTED (NOT DETECTED)
== END 2023-03-20 17:54 | disposition home or self-care (01) ==
LOC: HO.LNP 17:53
PROVIDERS: Visit Provider Internal Medicine
DX: N89.8 Other specified noninflammatory disorders of vagina (principal)
CPT/HCPCS: 81513; 87491; 87591

== ENCOUNTER 2023-08-24 11:17 | Outpatient (REF) | payer MEDICAID, SELFPAY ==
[2023-08-24 12:39] LABS: Cholesterol 204 mg/dL (<200); HDL Cholesterol 69 mg/dL (>40); LDL Cholesterol Calculated 114 mg/dL (<100); Triglycerides 105 mg/dL (<150)
[2023-08-24 12:43] LABS: Reflex LDLD? No
[2023-08-24 12:44] LABS: Vitamin D 25-OH Total 14.9 ng/mL (>30)
[2023-08-24 12:46] LABS: HBS Num1 0.67 mIU/mL (0-7.99); HBc Num1 0.12 S/CO (0.00-0.79); HBsAGNum1 0.57 S/CO (0.00-0.99); HIV AB/AG Nonreactive (Nonreactive); HIV Num 1 0.05 S/CO (0.00-0.99); Hepatitis A Antibody IgM 0.15 Index (0-0.79); Hepatitis B Core Antibody Nonreactive (Nonreactive); Hepatitis B Surface Antigen Negative (Negative); ~HepC Num1 0.09 S/CO (0.00-0.79); ~Hepatitis A Antibody IgM Nonreactive (Nonreactive); ~Hepatitis B Surface Antibody NONREACTIVE (Nonreactive); ~Hepatitis C Antibody Nonreactive (Nonreactive)
[2023-08-24 12:49] LABS: Syphilis Screen Reactive (Nonreactive)
[2023-08-25 23:24] LABS: Rubella IgG Antibody 1.39 Index; Rubeola IgG (Measles) >300.00 AU/mL
[2023-08-26 22:33] LABS: TS Negative Control Passed; TS Panel A 0; TS Panel B 0; TS Positive Control Passed; TSpotTB Negative (Negative)
[2023-08-29 07:44] LABS: RPR Quantitative Reactive 1:2 (Nonreactive); T.Pallidum Particle Agg Test Reactive (Nonreactive)
== END 2023-08-24 11:18 | disposition home or self-care (01) ==
LOC: HO.LAB 11:17
PROVIDERS: PCP Internal Medicine; Visit Provider Internal Medicine
DX: Z00.00 Encounter for general adult medical examination without abnormal findings (principal); E55.9 Vitamin D deficiency, unspecified; E11.9 Type 2 diabetes mellitus without complications
CPT/HCPCS: 36415; 80061; 82306; 86481; 86592; 86704; 86706; 86709; 86735; 86762; 86765; 86780; 86803; 87340; 87389

== ENCOUNTER 2023-08-26 11:19 | Outpatient (AMB) | payer MEDICAID, SELFPAY ==
--- NOTE | 2023-08-26 11:23 | A.OFFVIS_ITS ---
VS Expanded 08/26/23 11:30 BP 136/77 Blood Pressure Location Rt brachial Blood Pressure Position Sitting Pulse 93 Pulse Source Pulse Oximeter Temp 97.0 F Temperature Source Tympanic Pulse Oximetry 95 Oxygen Delivery Method Room Air Height 5 ft 3 in Weight 224 lb 3.2 oz BMI 39.7 Body Fat % 46.3 Body Fat Mass 103.6 Fat Free Mass 120.4 Visceral Fat Rating 14.0 Body Water % 38.3 Body Water Mass 85.8 Muscle Mass/Score 114.2 Basal Metabolic Rate/Score 1,695 Intake Visit Reasons: (OV) PO LSG 07/20/19 Job Training Specialist Required: No Allergies Iodinated Contrast Media [IV CONTRAST] Adverse Reaction (Intermediate, Verified 08/26/23 11:35) VOMITING Medication List - Last Reconciled 08/26/23 by KIMMIE Logan albuterol sulfate 90 mcg/actuation (Ventolin HFA) 2 puffs inhalation QID PRN cholecalciferol (vitamin D3) 1 cap DAILY ibuprofen 400 mg PO Q6H PRN trazodone 1 tab BEDTIME HPI Comments Details: This?a?51?yo female who is s/p LSG without hiatal hernia repair on?07/20/[address] Box. Presents for 4 year post op visit. Weight today is 224.2 pounds, with a BMI of 39.7. She was seen in the ER in early July 2022 with complaints of abdominal pain. CT scan showed anterior abdominal wall hernia containing fat just superior to anterior abdominal wall mesh. She was felt to have a gastroenteritis, treated supportively and d/c home the next day. Weight at her visit 1 year ago was 208. SHe has not followed up since. She states the lowest she weighed after surgery was 198. She also states she was told to be seen by a general surgeon for her anterior abdominal wall hernia but she never followed up. Complains of constipation, not taking vitamins. Previously used celebrate 4:1 shakes and has some at home States she has not done anything over the last year. She does not eat much food but picks at things. Her son has and she is discussing with her therapist. previous recommended meal plan includes: 3 Celebrate 4:1 shakes First shake (2 scoops in 8 oz low fat unsweetened almond milk) at 7am-9am Second shake (1 scoop in 8 oz unsweetened almond milk) at 11am-1pm 1 protein bar (Zone Perfect bars at [employer], [employer], or [employer]) at 3pm-5pm. Dinner at 530pm (4 forks of protein and 4 forks of salad/vegetables). Another shake with 1 scoop in 8 oz unsweetened almond milk at 7pm-9pm. 48 oz water daily. Exercise routine includes: none, could join a gym Any post op complications: none MARISA: never DM: resolved HTN: never Hyperlipidemia: never GERD:?0-5 scale ??0 = no symptoms ??1 = symptoms noticeable but not bothersome 2 =symptoms bothersome but not daily ? 3 = symptoms bothersome and daily 4 = symptoms affect daily activities 5 = symptoms are incapacitating, unable to do daily activities ? How bad is the heartburn: 0 ? Heartburn while lying down: 0 ? Heartburn when standing up: 0 ? Heartburn after meals: 0 ? Does heartburn change your diet: 0 ? Does heartburn wake you up from sleep: 0 ? Do you have difficulty swallowin ? Do you have pain with swallowin ? If you take medicine for your reflux, does this affect your daily life: 0 Satisfaction with present condition - satisfied or not satisfied: not satisfied with weight PFSH Medical History Vitamin B1 deficiency Vitamin A deficiency Obesity (BMI 30-39.9) Positive H. pylori test Intestinal malabsorption following gastrectomy Insomnia Sleep apnea with use of continuous positive airway pressure (CPAP) Asthma Urinary incontinence Surgical History S/P laparoscopic sleeve gastrectomy Hx of colonoscopy H/O oophorectomy S/P BARBRA (total abdominal hysterectomy) S/P hernia repair Status post breast reduction Hx laparoscopic cholecystectomy Hx of tubal ligation Family History Father DM (diabetes mellitus) HTN (hypertension) Mother Dementia Uterine cancer Brother No problems noted. Brother No problems noted. Brother No problems noted. Sister No problems noted. Sister No problems noted. Sister No problems noted. Sister No problems noted. Sister No problems noted. Sister No problems noted. Son No problems noted. Son No problems noted. Son No problems noted. Daughter No problems noted. Social History Alcohol intake: current Alcohol intake frequency: a few times a month Patient Tobacco Use Status: Never used Tobacco Physical Exam Vital Signs: Last Vital Signs Temp 97.0 F 08/26/23 11:30 Pulse 93 08/26/23 11:30 BP 136/77 08/26/23 11:30 Pulse Ox 95 08/26/23 11:30 Oxygen Delivery Method Room Air 08/26/23 11:30 BMI result Body Mass Index 39.7 Const General: cooperative and no acute distress Orientation/consciousness: patient oriented x3 Resp Effort & Inspection: normal respiratory effort Auscultation: clear to auscultation bilaterally Cardio Rate: regular rate Rhythm: regular rhythm GI Inspection: Yes normal to inspection and Yes incision (well healed) Palpation (GI): Soft to palpation and no masses Neuro General: patient oriented x3 Assessment & Plan Assessment & Plan (1) Obesity (BMI 30-39.9): Code(s): E66.9 - Obesity, unspecified Category: Medical Plan: Patient returns for her 4 year follow-up. Over the last 1 year, she did not follow-up. She did not follow the meal plan. She did not exercise. She was dealing with the of her son and has been working through this with her behavioral health therapist. I resent the e-mail I sent her a year ago extensively outlining a specific meal plan and exercise plan. She states that she will try to follow this. She was enquiring about weight loss medications. We will have her return to the office in 6 weeks. Additionally, she had recent lab work done for her cholesterol and vitamin-D levels only. I supplemented with yearly labs. I explained to her that if she were to use the celebrate 4 in 1 protein shake as was recommended, she would not need supplemental vitamins. She will text me with any questions or concerns. Orders: Orders Zinc Today D72.819 - Decreased white blood cell count, unspecified, E51.9 - Thiamine deficiency, unspecified, E66.9 - Obesity, unspecified Vitamin A Today D72.819 - Decreased white blood cell count, unspecified, E51.9 - Thiamine deficiency, unspecified, E66.9 - Obesity, unspecified Vitamin B12 and Folate Today D72.819 - Decreased white blood cell count, unspecified, E51.9 - Thiamine deficiency, unspecified, E66.9 - Obesity, unspecified TSH reflex Free T4 Today D72.819 - Decreased white blood cell count, unspecified, E51.9 - Thiamine deficiency, unspecified, E66.9 - Obesity, unspecified IRON PROFILE Today D72.819 - Decreased white blood cell count, unspecified, E51.9 - Thiamine deficiency, unspecified, E66.9 - Obesity, unspecified Ferritin Today D72.819 - Decreased white blood cell count, unspecified, E51.9 - Thiamine deficiency, unspecified, E66.9 - Obesity, unspecified Vitamin B1 Today D72.819 - Decreased white blood cell count, unspecified, E51.9 - Thiamine deficiency, unspecified, E66.9 - Obesity, unspecified Complete Blood Count Auto Diff Today D72.819 - Decreased white blood cell count, unspecified, E51.9 - Thiamine deficiency, unspecified, E66.9 - Obesity, unspecified Basic Metabolic Panel Today D72.819 - Decreased white blood cell count, unspecified, E51.9 - Thiamine deficiency, unspecified, E66.9 - Obesity, unspecified
[2023-08-26 11:30] VITALS: BP 136/77; PULSE 93; TEMP 36.1; O2SAT 95; BMI 39.7
== END 2023-08-26 12:00 | disposition home or self-care (01) ==
PROVIDERS: PCP Internal Medicine; Visit Provider Physician Assistant Surgical
DX: E66.9 Obesity, unspecified (principal)
CPT/HCPCS: 99214

== ENCOUNTER → 2023-08-26 11:19 | Outpatient (BNVA) | payer MEDICAID, SELFPAY | PROVIDERS: PCP Internal Medicine; Visit Provider Physician Assistant Surgical | DX: E66.9 Obesity, unspecified (principal); Z68.39 Body mass index [BMI] 39.0-39.9, adult | CPT/HCPCS: 99212 ==

== ENCOUNTER 2024-04-06 12:13 | Outpatient (REF) | payer OTHER, SELFPAY ==
[2024-04-06 13:09] LABS: MANUAL DIFF FLAG NO
[2024-04-06 13:18] LABS: Basophils Percent Auto 0.6 % (0-2); Eosinophils Absolute Auto 0.1 X10*3/uL (0.0-0.4); Eosinophils Percent Auto 2.5 % (0-4); Hematocrit 42.2 % (37.0-47.0); Hemoglobin 13.2 g/dl (12.0-16.0); Imm Gran Abs Auto 0.02 X10*3/uL (0.00-0.03); Imm Gran Pct Auto 0.6 % (0.0-0.4); Lymphocytes Absolute Auto 1.2 X10*3/uL (1.2-4.9); Lymphocytes Percent Auto 33.6 % (20-40); Mean Corpuscular HGB Conc 31.3 g/dl (31.0-35.0); Mean Corpuscular Hemoglobin 26.9 pg (27.0-33.0); Mean Corpuscular Volume 85.9 fL (80.0-98.0); Mean Platelet Volume 8.9 fL (9.4-12.3); Monocytes Absolute Auto 0.3 X10*3/uL (0.1-1.2); Monocytes Percent Auto 8.5 % (2-11); Neutrophils Percent Auto 54.2 % (45-73); Platelet Count 300 X10*3/uL (160-400); Red Blood Count 4.91 X10*6/uL (4.20-5.50); Red Cell Distribution Width 14.1 % (11.0-16.0); White Blood Count 3.6 X10*3/uL (4.8-10.8)
[2024-04-06 13:38] LABS: Estimated Average Glucose 111 mg/dL; Hemoglobin A1c % 5.5 % (<6.0); Total Hemoglobin (HGBA1C) 3326.5312 umol/L
[2024-04-06 13:49] LABS: Alanine Aminotransferase 14 U/L (0-31); Albumin Level 4.1 g/dL (3.5-5.0); Alkaline Phosphatase 78 U/L (39-117); Anion Gap 10 (12-20); Aspartate Amino Transferase 18 U/L (5-31); Bilirubin Total 0.3 mg/dL (0.0-1.0); Blood Urea Nitrogen 8 mg/dL (9-16); C Reactive Protein 1.54 mg/dL (< or = 0.50); Calcium 9.4 mg/dL (8.4-10.2); Carbon Dioxide 30 mmol/L (22-29); Chloride 107 mmol/L (96-108); Cholesterol 189 mg/dL (<200); Estimated Glomerular Filt Rate > 60; Glucose Random 90 mg/dL (60-115); HDL Cholesterol 64 mg/dL (>40); LDL Cholesterol Calculated 95 mg/dL (<100); Potassium 4.1 mmol/L (3.3-5.1); Sodium 143 mmol/L (135-145); TSH reflex Free T4 0.82 uIU/mL (0.32-4.0); Total Protein 7.7 g/dL (6.5-8.0); Triglycerides 151 mg/dL (<150); Vitamin D 25-OH Total 14.2 ng/mL (>30)
[2024-04-06 13:56] LABS: Erythrocyte Sedimentation Rate 16 MM/HR (0-20)
[2024-04-07 04:51] LABS: HIV AB/AG Nonreactive (Nonreactive); HIV Num 1 0.08 S/CO (0.00-0.99); ~HepC Num1 0.11 S/CO (0.00-0.79); ~Hepatitis C Antibody Nonreactive (Nonreactive)
[2024-04-08 11:34] LABS: Anti Nuclear Antibody Screen NEGATIVE (NEGATIVE)
[2024-04-08 19:47] LABS: Cyclic Citrullinated Peptide <16 UNITS
== END 2024-04-06 12:14 | disposition home or self-care (01) ==
LOC: HO.HHCL 12:13
PROVIDERS: Visit Provider Internal Medicine
DX: Z13.6 Encounter for screening for cardiovascular disorders (principal); Z13.1 Encounter for screening for diabetes mellitus; M25.50 Pain in unspecified joint
CPT/HCPCS: 36415; 80053; 80061; 82306; 83036; 84443; 85025; 85652; 86038; 86140; 86200; 86803; 87389

== ENCOUNTER 2024-11-10 14:11 | Outpatient (REF) | payer OTHER, SELFPAY ==
--- OUTSIDE RECORDS SUMMARY | 2024-11-10 14:22 | XMS_ITS | Patient Health Record ---
Author Organization [facility] Address [address] [place] [address] Care Team Providers Care Finish Rolls Operator Name Role Phone Hung BLOOM, Christie Primary Care Provider Unavailab Poncho Bowman Jr Unavailable Poncho Hammond Unavailable Unavailable Allergies Allergen (clinical drug ingredient) Drug/Non Drug Allergy documented on EMR Reaction Allergy Type Onset Date Status contrast dye (uncoded) n/v Allergy Active Reason For Referral No Information Medications Medication SIG (Take, Route, Frequency, Duration) Notes Start Date End Date Status Omeprazole Active Flovent HFA Active Colyte with Flavor Packs 240 GM As directed Orally Over the specified time. for 1 day(s) Active traZODone HCl Active Naproxen Active Problems Problem Type SNOMED Code ICD Code Onset Dates Problem Status W/U Status Risk Notes Problem 11081634 Epigastric pain (R10.13) Active confirmed Problem 658671613 Abdominal bloati ng (R14.0) Active confirmed Problem 019000711 Change in bowel habits (R19.4) Active confirmed Problem 537253844 Gastroesophageal reflux disease without esophagitis (K21.9) Active confirmed Problem 35980081 Iron deficiency anemia, unspecified iron deficiency anemia type (D50.9) Active confirmed Problem 610587604 Family history o f ovarian cancer (Z80.41) Active confirmed Plan Of Treatment Pending Test Test Name Order Date CT ABD & PELVIS WITH PO CONT ONLY 2015 Future Test Test Name Order Date UPPER GI ENDOSCOPY 01/29/2018 COLONOSCOPY 01/29/2018 Insurance Providers Payer Name Payer Address Payer Phone Subscriber Number Group Number Insured Name Patient Relationship to Insured Coverage Start Date Coverage End Date MEDICAID OF [facility] [address] [place] [phone] [id number] DAVID ORTIZ Self - patient is the insured Medical (General) History Medical History History ICD Code egd 02-20-2010 gerd asthma Denies [place],DM,CVA,Lung disease,renal dise ase Surgical History Surgery Date(Month/Year) cholecystectomy breast augmentation tubal ligation uterus and one ovary removed 2018
--- OUTSIDE RECORDS SUMMARY | 2024-11-10 14:22 | XMS_ITS | Clinical Summary ---
Author Organization [address] [facility] Address [address] [place] [address] Phone Care Team Providers Care Active Directory Specialist Name Role Phone Francisco Javier Morales MD Primary Care Provider [phone] Allergies No known active allergies Medications No known medications Active Problems No known active problems Social History Tobacco Use Types Packs/Day Years Used Date Smoking Tobacco: Never Assessed Comments Unknown Sex and Gender Information Value Date Recorded Sex Assigned at Not on file Legal Sex Female 5:22 PM EDT Gender Identity Not on file Sexual Orientation Not on file Plan of Treatment Upcoming Encounters Date Type Department Care Team (Late st Contact Info) Description 12/08/2024 2:30 PM EDT Office Visit Bariatric Surgery [facility] [address] [address] Raymundo Carrillo MD [address] [phone] Health Maintenance Due Date Last Done Comments Breast Cancer Screening 1971 DTaP,Tdap,and Td Vaccines (1 - Tdap) 10/06/1990 Hepatitis B Vaccines (1 of 3 - 19+ 3-dose series) 10/06/1990 Cervical Cancer Screening: P ap Smear 10/06/1992 Pneumococcal Vaccine: 50+ Ye ars (1 of 1 - PCV) 10/06/2021 Zoster Vaccines (1 of 2) 10/06/2021 COVID-19 Vaccine ( - 2023-2 5 season) 2024 Colorectal Cancer Screening: Colonoscopy 02/20/2024 Depression Screening 02/20/2024 HIV Screening 02/20/2024 Hepatitis C Screening 02/20/2024 Social Influencers of Health Screening 02/20/2024 Influenza Vaccine (#1) 2025 HIB Vaccines Aged Out No longer eligi ble based on patient's age to complete this topic HPV Vaccines Aged Out No longer eligi ble based on patient's age to complete this topic Hepatitis A Vaccines Aged Out No long er eligible based on patient's age to complete this topic IPV Vaccines Aged Out No longer eligi ble based on patient's age to complete this topic MMR Vaccines Aged Out No longer eligi ble based on patient's age to complete this topic Meningococcal ACWY Vaccine Aged Out N o longer eligible based on patient's age to complete this topic Meningococcal B Vaccine Aged Out No l onger eligible based on patient's age to complete this topic RSV Immunization Patients Un corina 20 months Aged Out No longer eligible b ased on patient's age to complete this topic Varicella Vaccines Aged Out No longer eligible based on patient's age to complete this topic [place] [address] MEDICAID - [place] Care Teams Active Directory Specialist Relationship Specialty Start Date End Date Francisco Javier Morales MD [address] [place] [address] Dr Leroy [place] PCP - General Internal Medicine 03/22/24
--- OUTSIDE RECORDS SUMMARY | 2024-11-10 14:22 | XMS_ITS | Encounter Summary ---
Author Organization [employer] [facility] Address [address] [facility] [address] [place] [address] Care Team Providers Care Repairer Welding Equipment Name Role Phone France Avalos MD Primary Care Provide r Reason for Visit * Reason Comments Med Change Request Encounter Details Date Type Department Care Team ([facility] st Contact Info) Description 08/06/2024 Refill [facility] MED[facility]INE [address] [place], [place] [phone] France Avalos MD [address] [place] [address] Fibromyalgia Social History Tobacco Use Types Packs/Day Years Used Date Smoking Tobacco: Never Passive Smoke Exposure: Never Smokeless Tobacco: Never Alcohol Use Standard Drinks/Week Comments Yes 0 (1 standard drink = 0.6 oz pur e alcohol) oca Depression Answer Date Recorded Patient Health Questionnaire-9 Score 11 08/14/2023 Patient Health Questionnaire-9 Score 11 08/14/2023 Last PHQ-9: Questionnaire Data Not on file 0 08/14/2023 Housing Stability Answer Date Recorded What is your housing situation today? I have [place] 02/16/[address] you li ve. Do you have problems with any of the following? None of the above 02/16/2023 Food Insecurity Answer Date Recorded Within the past 12 months, y ou worried that your food would run out before you got money to buy more: Never True 02/16/2023 Within the past 12 months,th e food you bought just didn't last and you didn't have enough money to get more: Never True Transportation Answer Date Recorded In the past 12 months, has l ack of transportation kept you from medical appts, meetings, work or from getting things needed for daily living? No 02/16/2023 Utilities Answer Date Recorded In the past 12 months, has t he electric, gas, oil or water company threatened to shut off services in your home? No 02/16/2023 Depression Answer Date Recorded Patient Health Questionnaire-2 Score 6 08/14/2023 Comments Unknown Sex and Gender Information Value Date Recorded Sex Assigned at Female 03/03/2022 10:16 AM EDT Legal Sex Female 10:16 AM EDT Gender Identity Female 03/03/2022 10:16 AM EDT Sexual Orientation Choose not to disclose 2021 10:16 AM EDT documented as of this encounter Plan of Treatment Not on file documented as of this encounter Visit Diagnoses Diagnosis Fibromyalgia Unspecified myalgia and myositis documented in this encounter Additional Health Concerns Assessment Noted Time PHQ-9 Depression Total Score: 11 024 9:35 AM EDT documented as of this encounter Care Teams Repairer Welding Equipment Relationship Specialty Start Date End Date France Avalos MD [address] [place] [address] PCP - General Family Medicine 12/23/21 documented as of this encounter
== END 2024-11-10 14:12 | disposition home or self-care (01) ==
LOC: HO.MAMMO 14:11
PROVIDERS: PCP Internal Medicine; Visit Provider Internal Medicine
DX: Z12.31 Encounter for screening mammogram for malignant neoplasm of breast (principal)
CPT/HCPCS: 77063; 77067

== ENCOUNTER → 2024-11-10 14:30 | Outpatient (BNV) | payer OTHER, SELFPAY | PROVIDERS: PCP Internal Medicine; Visit Provider Internal Medicine | DX: Z12.31 Encounter for screening mammogram for malignant neoplasm of breast (principal) | CPT/HCPCS: 77063; 77067 ==

== ENCOUNTER → 2024-11-17 12:32 | Outpatient (REF) | payer OTHER, SELFPAY ==
--- OUTSIDE RECORDS SUMMARY | 2024-11-17 13:00 | XMS_ITS | Clinical Summary ---
Author Organization [address] [facility] Address [address] [place] [address] Phone Care Team Providers Care Installment Loan Collector Name Role Phone Francisco Javier Morales MD Primary Care Provider [phone] Allergies No known active allergies Medications No [...] 2:30 PM EDT Office Visit Bariatric Surgery [facility] [address] [address] Raymundo Carrillo MD [address] [phone] Health Maintenance Due Date Last Done Comments [...] to complete this topic [place] [id number] MEDICAID - [place] Care Teams Installment Loan Collector Relationship Specialty Start Date End Date Francisco Javier Morales MD [address] [place] [address] Dr Leroy [place] PCP - General Internal Medicine 03/22/24
--- OUTSIDE RECORDS SUMMARY | 2024-11-17 13:00 | XMS_ITS | Encounter Summary ---
Author Organization [employer] Address [address] [facility] [address] [place] [address] Care Team Providers Care Network Pricing Consultant Name Role Phone France Avalos MD Primary Care Provide r Reason for Visit * Reason Comments Med Change Request Encounter Details Date Type Department Care Team ([facility] st Contact Info) Description 08/06/2024 Refill [facility] MEDICINE [address] [place], [place] [phone] France Avalos MD [address] [place] [address] Fibromyalgia Social History Tobacco Use Types Packs/Day [...] documented as of this encounter Care Teams Network Pricing Consultant Relationship Specialty Start Date End Date France Avalos MD [address] [place] [address] PCP - General Family Medicine 12/23/21 documented as of this encounter
--- OUTSIDE RECORDS SUMMARY | 2024-11-17 13:00 | XMS_ITS | Patient Health Record ---
Author Organization [facility] Address [address] [place] [address] Care Team Providers Care Medical Technical Writer Name Role Phone Hung BLOOM, Christie Primary [...] Problem Status W/U Status Risk Notes Problem 56031416 Epigastric pain (R10.13) Active confirmed Problem 152827389 Abdominal bloati ng (R14.0) Active confirmed Problem 793101202 Change in bowel habits (R19.4) Active confirmed Problem 841749349 Gastroesophageal reflux disease without esophagitis (K21.9) Active confirmed Problem 47573312 Iron deficiency anemia, unspecified iron deficiency anemia type (D50.9) Active confirmed Problem 942475685 Family history o f ovarian cancer (Z80.41) [...] Start Date Coverage End Date MEDICAID OF [facility] [address] [place] [phone] [id number] DAVID ORTIZ Self - patient is the insured Medical (General) History Medical History History ICD Code egd 02-20-2010 gerd asthma Denies [place],DM,CVA,Lung disease,renal dise ase Surgical History Surgery Date(Month/Year) cholecystectomy breast augmentation tubal ligation uterus and one ovary removed 2018
== END ==
LOC: HO.SL 12:32
PROVIDERS: PCP Internal Medicine; Visit Provider Internal Medicine
DX: G47.33 Obstructive sleep apnea (adult) (pediatric) (principal); R06.83 Snoring
CPT/HCPCS: 95806

== ENCOUNTER → 2024-11-17 21:00 | Outpatient (BNV) | payer OTHER, SELFPAY | PROVIDERS: PCP Internal Medicine; Visit Provider Internal Medicine | DX: R06.83 Snoring (principal) | CPT/HCPCS: 95806 ==